=== PATIENT | female | born 1960 | race African-American/Black ===

== ENCOUNTER 2016-05-24 08:50 | Emergency (ER) | payer MEDICAID ==
--- NOTE | 2016-05-24 09:10 | ER Document Report ---
ED GI/ - General Chief Complaint: Flank Pain Stated Complaint: BACK PAIN Notes: Patient is complaining of flank pain over the past 2.5 weeks. She was recently treated for UTI by Dr. Mcginnis. Patient states that her urinary symptoms resolved since. She followed up with him since that diagnosis with this flank pain and she says he wasnt evaluated for anything but he asked if she had a history of renal stones which she does not. Patient states that she has a history of chronic back pain due to scoliosis she states that this pain is different than her baseline back pain. She states that the pain starts in her left flank and radiates to the front groin. Denies nausea, vomiting, fever, pyuria hematuria, difficulty urinating, vaginal symptoms. Last bowel movement was this morning was formed and soft Past medical history significant for chronic back pain secondary to scoliosis, diabetes, depression Past surgical history significant for bladder tacking, tonsils and adenoids, tubal ligation, cholecystectomy, multiple orthopedic procedures on shoulder color Social history: Admits to former narcotic use but denies any tobacco or alcohol TRAVEL OUTSIDE OF THE [place] IN LAST 30 DAYS: No - Related Data Allergies/Adverse Reactions: bupropion HCl [From Wellbutrin] Allergy (Severe, Verified 05/24/16 08:59) prochlorperazine edisylate [From Compazine] Allergy (Severe, Verified 05/24/16 08:59) prochlorperazine maleate [From Compazine] Allergy (Severe, Verified 05/24/16 08: 59) buprenorphine [Buprenorphine] Allergy (Verified 05/24/16 08:59) Phenothiazines Allergy (Verified 05/24/16 08:59) Home Medications: Current Home Medications Canagliflozin [Invokana] 100 mg PO QAM 05/24/16 [History] Polyethylene Glycol 3350 [Polyethylene Glycol] 1 cap PO DAILY 05/24/16 [History] Past Medical History - General Information source: Patient - Social History Smoking Status: Never Smoker Frequency of alcohol use: None Drug Abuse: None Family History: Reviewed & Not Pertinent Patient has suicidal ideation: No Patient has homicidal ideation: No - Past Medical History Cardiac Medical History: Reports: Hx Coronary Artery Disease, Hx Hypertension Denies: Hx Heart Attack Pulmonary Medical History: Denies: Hx Asthma, Hx Bronchitis, Hx COPD, Hx Pneumonia Neurological Medical History: Denies: Hx Cerebrovascular Accident, Hx Seizures Renal/ Medical History: Denies: Hx Peritoneal Dialysis Musculoskeltal Medical History: Reports Hx Arthritis Psychiatric Medical History: Reports: Hx Depression Past Surgical History: Denies: Hx Hysterectomy - Immunizations Hx Diphtheria, Pertussis, Tetanus Vaccination: Yes Review of Systems - Review of Systems Constitutional: No symptoms reported EENT: No symptoms reported Cardiovascular: No symptoms reported Respiratory: No symptoms reported Gastrointestinal: No symptoms reported Genitourinary: No symptoms reported Female Genitourinary: No symptoms reported Musculoskeletal: See HPI Skin: No symptoms reported Hematologic/Lymphatic: No symptoms reported Neurological/Psychological: No symptoms reported Physical Exam - Vital signs Vitals: Temp Pulse Resp BP Pulse Ox 97.9 F 99 20 162/87 H 95 05/24/16 08:52 05/24/16 08:52 05/24/16 08:52 05/24/16 08:52 05/24/16 08:52 - Notes Notes: PHYSICAL EXAM GENERAL: Alert, interacts well. HEAD: Normocephalic, atraumatic. EYES: Pupils equal, round, and reactive to light. Extraocular movements intact. ENT: Oral mucosa moist, tongue midline. NECK: Full range of motion. Supple. Trachea midline. LUNGS: Clear to auscultation bilaterally, no wheezes, rales, or rhonchi. No respiratory distress. HEART: Regular rate and rhythm. No murmurs, gallops, or rubs. ABDOMEN: Soft, nondistended, nontender. No guarding, rebound, or rigidity.. Bowel sounds present in all 4 quadrants. BACK: tense left trapezius. + CVA tenderness of left flank, - CVA tenderness right EXTREMITIES: Moves all 4 extremities spontaneously. No edema, radial and dorsalis pedis pulses 2/4 bilaterally. No cyanosis. NEUROLOGICAL: Alert and oriented x3. Normal speech. PSYCH: Normal affect, normal mood. SKIN: Warm, dry, normal turgor. No rashes or lesions noted. Course - Re-evaluation Re-evalutation: 05/24/16 11:49 Patient is a 55-year-old female who is hemodynamically stable, no acute distress afebrile has a history of chronic back pain. She states has become worse over the past 2 and half weeks. Evaluation today does not feel any renal or urinary causes. KUB reveals 100 which is consistent with constipation for chronic narcotic use. Considering patient doesn't take a stool softener home educated on the benefit of taking this. Instructed to follow-up with Dr. Mcginnis in 1-2 weeks. - Vital Signs Vital signs: Temp Pulse Resp BP Pulse Ox 97.4 F 92 16 129/90 H 98 05/24/16 11:33 05/24/16 11:33 05/24/16 11:33 05/24/16 11:33 05/24/16 11:33 - Laboratory Result Diagrams: 05/24/16 09:56 05/24/16 09:56 Laboratory results interpreted by me: 05/24/16 05/24/16 05/24/16 09:50 09:56 09:56 Hgb 11.2 L Hct 35.4 L MCH 25.6 L MCHC 31.6 L RDW 17.3 H Glucose 170 H Alkaline Phosphatase 150 H Urine Glucose (UA) 50 H Discharge - Discharge Clinical Impression: Flank pain Condition: Good Disposition: HOME, SELF-CARE Additional Instructions: LOW BACK PAIN: Three out of every four people will have an episode of disabling back pain during their lifetime. Most commonly the pain is due to straining of the muscles and ligaments in the low back. Usual treatment includes: (1) Rest on a firm surface. Avoid lying on your stomach. (2) Ice pack the painful area. After a few days, gentle heat may be used intermittently to relax the area, or ice packs can be continued. (3) Medication may be needed -- muscle relaxers and antiinflammatory medicines are commonly used. (4) As the back improves, exercises are prescribed to strengthen the back and abdominal muscles. Your doctor will advise you on the proper care for your back at each stage in your recovery. You may be better in a few days -- or healing may take several weeks. If new symptoms of a "herniated disc" (radiation of pain, numbness, or tingling down the back of the leg or weakness in the leg) occur, you should be re-examined. Further testing may be necessary. MUSCLE RELAXERS: Muscle relaxing medications are usually prescribed for acute muscle spasm or injury to the neck and back. They are often combined with antiinflammatory pain medication for increased relief. You may stop the muscle relaxer when the pain and stiffness have improved. Start the medication again if spasms recur. Muscle relaxers may cause drowsiness, especially with the first dose. Do not operate machinery or drive while under the effects of the medication. Most muscle relaxers last up to 24 hours. Do not combine the medication with alcohol. ICE PACKS: Apply ice packs frequently against the painful area. Many different schedules are recommended, such as "20 minutes on, 20 minutes off" or "one hour ice, two hours rest." If you need to work, you may need to go longer between ice treatments. You should plan to have the area ice packed AT LEAST one fourth of the time. The ice should be applied over the wrap, tape, or splint, or over a layer of cloth -- not directly against the skin. Some ice bags have a built-in cloth and can be put directly on the skin. WARM PACKS: After approximately two days, apply gentle heat (such as a heating pad or hot water bottle) for about 20 to 30 minutes about every two hours -- at least four times daily. Warmth and elevation will help you make a more rapid recovery , and will ease the pain considerably. Do not use HOT heat, and never apply heat for longer than 30 minutes. The continuous heat can invisibly damage skin and muscles -- even when no burn is seen on the surface. Damaged muscles can make you MORE sore. FOLLOW-UP CARE: If you have been referred to a physician for follow-up care, call the physician s office for an appointment as you were instructed or within the next two days. If you experience worsening or a significant change in your symptoms, notify the physician immediately or return to the Emergency Department at any time for re-evaluation. Prescriptions: Cyclobenzaprine HCl [Flexeril 5 mg Tablet] 5 mg PO TID #15 tablet Forms: Elevated Blood Pressure Referrals: WALT MCGINNIS DO [Primary Care Provider] - Follow up in 1 month
[2016-05-24 10:13] LABS: ABSOLUTE BASOPHILS # (AUTO) 0.1 10^3/uL (0.0-0.2); ABSOLUTE EOSINOPHILS # (AUTO) 0.4 10^3/uL (0.0-0.6); ABSOLUTE LYMPHOCYTES (AUTO) 2.2 10^3/uL (0.5-4.7); ABSOLUTE MONOCYTES (AUTO) 0.7 10^3/uL (0.1-1.4); ABSOLUTE NEUT (AUTO) 3.5 10^3/uL (1.7-8.2); BASOPHILS % (AUTO) 0.9 % (0-2); EOSINOPHILS % (AUTO) 5.2 % (0-6); HEMATOCRIT 35.4 % (36.0-47.0); HEMOGLOBIN 11.2 g/dL (12.0-15.5); HGB HCT DIFFERENCE -1.8; LYMPHOCYTES % (AUTO) 32.3 % (13-45); MEAN CORPUSCULAR HEMOGLOBIN 25.6 pg (27.0-33.4); MEAN CORPUSCULAR HGB CONC 31.6 g/dL (32.0-36.0); MEAN CORPUSCULAR VOLUME 81 fl (80-97); MONOCYTES % (AUTO) 10.7 % (3-13); RED BLOOD COUNT 4.37 10^6/uL (3.72-5.28); RED CELL DISTRIBUTION WIDTH 17.3 % (11.5-14.0); SEGMENTED NEUTROPHILS % (AUTO) 50.9 % (42-78)
[2016-05-24 10:27] LABS: ALANINE AMINOTRANSFERASE 42 U/L (9-52); ALBUMIN 4.2 g/dL (3.5-5.0); ALKALINE PHOSPHATASE 150 U/L (38-126); ANION GAP 12 (5-19); ASPARTATE AMINO TRANSFERASE 35 U/L (14-36); BILIRUBIN,TOTAL 0.5 mg/dL (0.2-1.3); BLOOD UREA NITROGEN 10 mg/dL (7-20); CALCIUM 9.1 mg/dL (8.4-10.2); CARBON DIOXIDE 26 mmol/L (22-30); CHLORIDE 104 mmol/L (98-107); CREATININE RESULT 0.83 mg/dL (0.52-1.25); GLUCOSE 170 mg/dL (75-110); POTASSIUM 4.1 mmol/L (3.6-5.0); SODIUM 141.5 mmol/L (137-145); TOTAL PROTEIN 6.6 g/dL (6.3-8.2)
[2016-05-24 10:28] LABS: APPEARANCE,URINE CLEAR; BILIRUBIN,URINE NEGATIVE (NEGATIVE); GLUCOSE, URINE 50 mg/dL (NEGATIVE); KETONES,URINE NEGATIVE (NEGATIVE); LEUKOCYTE ESTERASE,URINE NEGATIVE (NEGATIVE); NITRITE,URINE NEGATIVE (NEGATIVE); PROTEIN,URINE NEGATIVE (NEGATIVE); URINE SPECIFIC GRAVITY 1.009; UROBILINOGEN,URINE NEGATIVE mg/dL (<2.0)
[2016-05-24] MEDS ORDERED: ACETAMINOPHEN 325 MG TABLET PO ONE (11:15)
[2016-05-24] MEDS ORDERED: NORMAL SALINE 500 ML IV PRN (11:15)
[2016-05-24] MEDS ORDERED: OXYCODONE-ACETAMINOPHEN 5-325 MG TABLET PO ONE (11:28)
[2016-05-24 11:34] VITALS: BP 129/90
== END 2016-05-24 11:50 | disposition home or self-care (01) ==
LOC: ER 08:50
DX: R10.9 Unspecified abdominal pain (principal); M54.9 Dorsalgia, unspecified; Z79.899 Other long term (current) drug therapy
CPT/HCPCS: 36415; 74000; 80053; 81001; 85025; 99284

== ENCOUNTER 2016-07-23 10:55 | Observation (INO) | payer MEDICAID ==
[2016-07-23] MEDS ORDERED: ASPIRIN 81 MG TABLET, CHEWABLE PO ONE ×2 (11:33→16:00)
--- NOTE | 2016-07-23 11:33 | ER Document Report ---
ED Medical Screen (RME) - General Stated Complaint: CHEST PAIN,NECK PAIN Notes: Patient states sudden onset of chest pain this morning around 9 AM. States pain radiates to right shoulder and up her right neck. Denies nausea or vomiting. Patient does have diabetes and uses insulin and oral medications, hypertension, and high cholesterol for which she is taking medications. She denies previous heart problems in the past. Describes the pain as pressure. I have greeted and performed a rapid initial assessment of this patient. A comprehensive ED assessment and evaluation of the patient, analysis of test results and completion of the medical decision making process will be conducted by additional ED providers. TRAVEL OUTSIDE OF THE [place] IN LAST 30 DAYS: No - Related Data Allergies/Adverse Reactions: bupropion HCl [From Wellbutrin] Allergy (Severe, Verified 05/24/16 08:59) prochlorperazine edisylate [From Compazine] Allergy (Severe, Verified 05/24/16 08:59) prochlorperazine maleate [From Compazine] Allergy (Severe, Verified 05/24/16 08: 59) buprenorphine [Buprenorphine] Allergy (Verified 05/24/16 08:59) Phenothiazines Allergy (Verified 05/24/16 08:59) Past Medical History - Past Medical History Cardiac Medical History: Reports: Hx Coronary Artery Disease, Hx Hypertension Denies: Hx Heart Attack Pulmonary Medical History: Denies: Hx Asthma, Hx Bronchitis, Hx COPD, Hx Pneumonia Neurological Medical History: Denies: Hx Cerebrovascular Accident, Hx Seizures Endocrine Medical History: Reports: Hx Diabetes Mellitus Type 2 Renal/ Medical History: Denies: Hx Peritoneal Dialysis Musculoskeltal Medical History: Reports Hx Arthritis Psychiatric Medical History: Reports: Hx Depression Past Surgical History: Reports: Hx Cholecystectomy, Hx Orthopedic Surgery - shoulder,knee,wrist, Hx Tonsillectomy, Hx Tubal Ligation. Denies: Hx Hysterectomy - Immunizations Hx Diphtheria, Pertussis, Tetanus Vaccination: Yes Physical Exam - Vital signs Vitals: Temp Pulse Resp BP Pulse Ox 97.9 F 93 22 H 146/89 H 96 07/23/16 11:28 07/23/16 11:28 07/23/16 11:28 07/23/16 11:28 07/23/16 11:28 - Cardiovascular Rhythm: Regular Heart sounds: Normal auscultation Course - Vital Signs Vital signs: Temp Pulse Resp BP Pulse Ox 97.9 F 93 22 H 146/89 H 96 07/23/16 11:28 07/23/16 11:28 07/23/16 11:28 07/23/16 11:28 07/23/16 11:28
[2016-07-23 12:33] LABS: ABSOLUTE BASOPHILS # (AUTO) 0.1 10^3/uL (0.0-0.2); ABSOLUTE EOSINOPHILS # (AUTO) 0.5 10^3/uL (0.0-0.6); ABSOLUTE MONOCYTES (AUTO) 0.6 10^3/uL (0.1-1.4); BASOPHILS % (AUTO) 0.8 % (0-2); EOSINOPHILS % (AUTO) 6.4 % (0-6); HEMATOCRIT 36.7 % (36.0-47.0); HEMOGLOBIN 12.2 g/dL (12.0-15.5); HGB HCT DIFFERENCE -0.1; LYMPHOCYTES % (AUTO) 28.4 % (13-45); MEAN CORPUSCULAR HEMOGLOBIN 27.4 pg (27.0-33.4); MEAN CORPUSCULAR HGB CONC 33.3 g/dL (32.0-36.0); MEAN CORPUSCULAR VOLUME 82 fl (80-97); MONOCYTES % (AUTO) 8.3 % (3-13); RED BLOOD COUNT 4.46 10^6/uL (3.72-5.28); SEGMENTED NEUTROPHILS % (AUTO) 56.1 % (42-78); WHITE BLOOD COUNT 7.2 10^3/uL (4.0-10.5)
[2016-07-23 12:43] LABS: PROTHROMBIN TIME 12.6 SEC (11.4-15.4)
[2016-07-23 12:50] LABS: ALANINE AMINOTRANSFERASE 39 U/L (9-52); ALBUMIN 4.1 g/dL (3.5-5.0); ALKALINE PHOSPHATASE 163 U/L (38-126); ANION GAP 10 (5-19); ASPARTATE AMINO TRANSFERASE 25 U/L (14-36); BILIRUBIN,DIRECT 0.2 mg/dL (0.0-0.4); BILIRUBIN,TOTAL 0.5 mg/dL (0.2-1.3); BLOOD UREA NITROGEN 14 mg/dL (7-20); CALCIUM 9.8 mg/dL (8.4-10.2); CARBON DIOXIDE 27 mmol/L (22-30); CHLORIDE 104 mmol/L (98-107); CREATINE KINASE 259 U/L (30-135); GLUCOSE 235 mg/dL (75-110); POTASSIUM 4.1 mmol/L (3.6-5.0); TOTAL PROTEIN 6.8 g/dL (6.3-8.2)
[2016-07-23 13:02] LABS: CREATINE KINASE MB 0.84 ng/mL (<4.55)
[2016-07-23 13:05] LABS: TROPONIN I < 0.012 ng/mL
[2016-07-23] MEDS ORDERED: NITROGLYCERIN 0.4 MG/TAB 25 TAB/BOTTLE SL PRN (15:01)
--- NOTE | 2016-07-23 15:03 | ER Document Report ---
ED General - General Chief Complaint: Chest Pain Stated Complaint: CHEST PAIN,NECK PAIN Mode of Arrival: Ambulatory Information source: Patient Notes: 55 yr old female with hx of htn, hyperlilpidemia, diabetes stress test 15 yrs ago presents with complaints of sudden chest pressure with radiation to the neck and down the right arm. denies any sob or diaphoresis TRAVEL OUTSIDE OF THE [place] IN LAST 30 DAYS: No - HPI Onset: Just prior to arrival Onset/Duration: Sudden Quality of pain: Pressure Severity: Mild Pain Level: 1 Associated symptoms: Chest pain Exacerbated by: Denies Relieved by: Denies Similar symptoms previously: No Recently seen / treated by doctor: No - Related Data Allergies/Adverse Reactions: bupropion HCl [From Wellbutrin] Allergy (Severe, Verified 07/23/16 11:32) prochlorperazine edisylate [From Compazine] Allergy (Severe, Verified 07/23/16 11:32) prochlorperazine maleate [From Compazine] Allergy (Severe, Verified 07/23/16 11: 32) buprenorphine [Buprenorphine] Allergy (Verified 07/23/16 11:32) Phenothiazines Allergy (Verified 07/23/16 11:32) Past Medical History - Social History Smoking Status: Never Smoker Cigarette use (# per day): No Chew tobacco use (# tins/day): No Smoking Education Provided: No Frequency of alcohol use: None Drug Abuse: None Family History: Reviewed & Not Pertinent - Past Medical History Cardiac Medical History: Reports: Hx Coronary Artery Disease, Hx Hypertension Denies: Hx Heart Attack Pulmonary Medical History: Denies: Hx Asthma, Hx Bronchitis, Hx COPD, Hx Pneumonia Neurological Medical History: Denies: Hx Cerebrovascular Accident, Hx Seizures Endocrine Medical History: Reports: Hx Diabetes Mellitus Type 2 Renal/ Medical History: Denies: Hx Peritoneal Dialysis Musculoskeltal Medical History: Reports Hx Arthritis Psychiatric Medical History: Reports: Hx Depression Past Surgical History: Reports: Hx Cholecystectomy, Hx Orthopedic Surgery - shoulder,knee,wrist, Hx Tonsillectomy, Hx Tubal Ligation. Denies: Hx Hysterectomy - Immunizations Hx Diphtheria, Pertussis, Tetanus Vaccination: Yes Review of Systems - Review of Systems Notes: REVIEW OF SYSTEMS: CONSTITUTIONAL : Denies fever, chills, or sweats. Denies recent illness. EENT: Denies eye, ear, throat, or mouth pain or symptoms. Denies nasal or sinus congestion or discharge. Denies throat, tongue, or mouth swelling or difficulty swallowing. CARDIOVASCULAR: Admits to chest pain RESPIRATORY: Denies cough, cold, or chest congestion. Denies shortness of breath, difficulty breathing, or wheezing. GASTROINTESTINAL: Denies abdominal pain or distention. Denies nausea, vomiting , or diarrhea. Denies blood in vomitus, stools, or per rectum. Denies black, tarry stools. Denies constipation. GENITOURINARY: Denies difficulty urinating, painful urination, burning, frequency, blood in urine, or discharge. FEMALE GENITOURINARY: Denies vaginal bleeding, heavy or abnormal periods, irregular periods. Denies vaginal discharge or odor. MUSCULOSKELETAL: Denies back or neck pain or stiffness. Denies joint pain or swelling. SKIN: Denies rash, lesions or sores. HEMATOLOGIC : Denies easy bruising or bleeding. LYMPHATIC: Denies swollen, enlarged glands. NEUROLOGICAL: Denies confusion or altered mental status. Denies passing out or loss of consciousness. Denies dizziness or lightheadedness. Denies headache. Denies weakness or paralysis or loss of use of either side. Denies problems with gait or speech. Denies sensory loss, numbness, or tingling. Denies seizures. PSYCHIATRIC: Denies anxiety or stress. Denies depression, suicidal ideation, or homicidal ideation. ALL OTHER SYSTEMS REVIEWED AND NEGATIVE. Dictation was performed using [employer] voice recognition software PHYSICAL EXAMINATION: GENERAL: Well-appearing, well-nourished and in no acute distress. HEAD: Atraumatic, normocephalic. EYES: Pupils equal round and reactive to light, extraocular movements intact, conjunctiva are normal. ENT: Nares patent, oropharynx clear without exudates. Moist mucous membranes. NECK: Normal range of motion, supple without lymphadenopathy LUNGS: Breath sounds clear to auscultation bilaterally and equal. No wheezes rales or rhonchi. HEART: Regular rate and rhythm without murmurs ABDOMEN: Soft, nontender, nondistended abdomen. No guarding, no rebound. No masses appreciated. Female : deferred Musculoskeletal: Normal range of motion, no pitting or edema. No cyanosis. NEUROLOGICAL: Cranial nerves grossly intact. Normal speech, normal gait. Normal sensory, motor exams PSYCH: Normal mood, normal affect. SKIN: Warm, Dry, normal turgor, no rashes or lesions noted. Physical Exam - Vital signs Vitals: Temp Pulse Resp BP Pulse Ox 97.9 F 93 22 H 146/89 H 96 07/23/16 11:28 07/23/16 11:28 07/23/16 11:28 07/23/16 11:28 07/23/16 11:28 Course - Re-evaluation Re-evalutation: 07/23/16 15:02 Well-appearing female no acute distress, for severe headache enzymes EKG noted no acute abnormality. Patient will be made for observation overnight for reevaluation of her chest pain - Vital Signs Vital signs: Temp Pulse Resp BP Pulse Ox 97.9 F 93 22 H 146/89 H 96 07/23/16 11:28 07/23/16 11:28 07/23/16 11:28 07/23/16 11:28 07/23/16 11:28 - Laboratory Result Diagrams: 07/23/16 11:50 07/23/16 11:50 Laboratory results interpreted by me: 07/23/16 07/23/16 11:50 11:50 RDW 16.0 H Eosinophils % 6.4 H Glucose 235 H Alkaline Phosphatase 163 H Creatine Kinase 259 H - Diagnostic Test Radiology reviewed: Image reviewed, Reports reviewed Discharge - Discharge Clinical Impression: Chest pain Qualifiers: Chest pain type: unspecified Qualified Code(s): R07.9 - Chest pain, unspecified Condition: Stable Disposition: ADMITTED OBSERVATION Admitting Provider: Hospitalist Unit Admitted: Telemetry
[2016-07-23] MEDS ORDERED: ACETAMINOPHEN 325 MG TABLET PO PRN (16:22)
[2016-07-23] MEDS ORDERED: ONDANSETRON HCL INJ/PF 4 MG/2 ML SDV IV PRN (16:22)
[2016-07-23] MEDS ORDERED: MAGNESIUM HYDROXIDE SUSP 30 ML UDCUP PO PRN (16:22)
[2016-07-23] MEDS ORDERED: OXYCODONE-ACETAMINOPHEN 5-325 MG TABLET PO PRN (16:22)
[2016-07-23] MEDS ORDERED: DEXTROSE 40% GEL 15 GM TUBE PO PRN ×2 (16:29)
[2016-07-23] MEDS ORDERED: INSULIN LISPRO 100 UNIT/ML 3 ML VIAL SUBCUT PRN (16:29)
[2016-07-23] MEDS ORDERED: DEXTROSE 50%-WATER 25 GM/50 ML DISP.SYRIN IV PRN ×2 (16:29)
[2016-07-23] MEDS ORDERED: GLUCAGON,HUMAN RECOMB 1 MG INJ IM PRN (16:29)
[2016-07-23] MEDS ORDERED: ENOXAPARIN SODIUM INJ 40 MG/0.4 ML DISP.SYRIN SUBCUT ONE (16:45)
--- NOTE | 2016-07-23 16:48 | PDOC H&P ---
History of Present Illness Admission Date/PCP: WALT HOPE DO Patient complains of: rt sided chest pain History of Present Illness: GASTON HERBERT is a 55 year old female presents from home with sudden onset of Rt sided chest pain described as sharp, shooting pain unrelenting radiating into Rt chest and neck with asctd dizziness but no dyspnea, N/V, jaw pain or diaphoresis; never had anything like this before. was evaluated in 2015 for Rt shoulder pain with cardiac r/o by enzymes and stress test but this time is different due to radiation into her chest and accompanying pressure. Cardiac risk factors include: Diabetes, long-standing hypertension, hyperlipidemia, family history, obesity, age. Evaluation in the emergency department so far unrevealing with negative cardiac enzyme and a normal EKG however based on her risk factors we were asked to admit for cardiac evaluation. Past Medical History Cardiac Medical History: Reports: Coronary Artery Disease, Hyperlipidema, Hypertension Denies: Myocardial Infarction Pulmonary Medical History: Denies: Asthma, Bronchitis, Chronic Obstructive Pulmonary Disease (COPD), Pneumonia Neurological Medical History: Denies: Seizures Endocrine Medical History: Reports: Diabetes Mellitus Type 2 GI Medical History: Reports: None Musculoskeltal Medical History: Reports: Arthritis Psychiatric Medical History: Reports: Depression, General Anxiety Disorder Hematology: Denies: Anemia Past Surgical History Past Surgical History: Reports: Cholecystectomy, Orthopedic Surgery - shoulder, knee,wrist, Tonsillectomy, Tubal Ligation Denies: Hysterectomy Social History Information Source: Patient Smoking Status: Never Smoker Frequency of Alcohol Use: None Hx Recreational Drug Use: No Hx Prescription Drug Abuse: No - Advance Directive Resuscitation Status: Full Code Family History Family History: CAD, DM Parental Family History Reviewed: Yes Children Family History Reviewed: Yes Sibling(s) Family History Reviewed.: Yes Medication/Allergy Home Medications: Atorvastatin Calcium [Lipitor 40 mg Tablet] 40 mg PO QHS 03/17/15 Cetirizine HCl [Zyrtec] 10 mg PO DAILY 03/17/15 Cyclobenzaprine HCl [Flexeril 10 mg Tablet] 10 mg PO BID PRN 03/17/15 Esomeprazole Magnesium [Nexium] 40 mg PO DAILY 03/17/15 Hydroxyzine Pamoate [Vistaril 25 mg Capsule] 100 mg PO QHS 03/17/15 Insulin Glargine,Hum.rec.anlog [Lantus Solostar] 40 unit SQ DAILY 03/17/15 Lisinopril/Hydrochlorothiazide [Lisinopril-Hctz 20-12.5 mg Tab] 1 each PO DAILY 03/17/15 Sertraline HCl [Zoloft] 200 mg PO DAILY 03/17/15 Sitagliptin Phosphate [Januvia] 100 mg PO DAILY 03/17/15 Dicyclomine HCl 20 mg PO DAILY 01/01/16 Gabapentin 600 mg PO TID 01/01/16 Glipizide [Glipizide Xl] 10 mg PO BID 01/01/16 Meloxicam [Mobic] 15 mg PO DAILY 01/01/16 Zolpidem Tartrate [Ambien] 10 mg PO HSP PRN 01/01/16 Oxycodone HCl/Acetaminophen [Percocet 5-325 mg Tablet] 1 - 2 tab PO ASDIR PRN # 15 tablet 04/14/16 Canagliflozin [Invokana] 100 mg PO QAM 05/24/16 Cyclobenzaprine HCl [Flexeril 5 mg Tablet] 5 mg PO TID #15 tablet 05/24/16 Polyethylene Glycol 3350 [Polyethylene Glycol] 1 cap PO DAILY 05/24/16 Allergies/Adverse Reactions: bupropion HCl [From Wellbutrin] Allergy (Severe, Verified 07/23/16 11:32) prochlorperazine edisylate [From Compazine] Allergy (Severe, Verified 07/23/16 11:32) prochlorperazine maleate [From Compazine] Allergy (Severe, Verified 07/23/16 11: 32) buprenorphine [Buprenorphine] Allergy (Verified 07/23/16 11:32) Phenothiazines Allergy (Verified 07/23/16 11:32) Review of Systems Constitutional: ABSENT: chills, fever(s), headache(s), weight gain, weight loss Eyes: ABSENT: visual disturbances Ears: ABSENT: hearing changes Cardiovascular: PRESENT: chest pain. ABSENT: dyspnea on exertion, edema, orthropnea, palpitations Respiratory: ABSENT: cough, dyspnea, hemoptysis Gastrointestinal: ABSENT: abdominal pain, constipation, diarrhea, hematemesis, hematochezia, nausea, vomiting Genitourinary: ABSENT: dysuria, hematuria Musculoskeletal: ABSENT: joint swelling Integumentary: ABSENT: rash, wounds Neurological: ABSENT: abnormal gait, abnormal speech, confusion, dizziness, focal weakness, syncope Psychiatric: ABSENT: anxiety, depression Endocrine: ABSENT: cold intolerance, heat intolerance, polydipsia, polyuria Hematologic/Lymphatic: ABSENT: easy bleeding, easy bruising Physical Exam Vital Signs: Temp Pulse Resp BP Pulse Ox 97.9 F 93 22 H 146/89 H 97 07/23/16 11:28 07/23/16 11:28 07/23/16 11:28 07/23/16 11:28 07/23/16 15:45 Intake & Output 07/22/16 07/23/16 07/24/16 06:59 06:59 06:59 Weight 105.2 kg PHYSICAL EXAM GENERAL: NAD; well developed, well nourished; mod obese; alert and oriented to person, place, time, situation HEENT: normocephalic, atraumatic; EOMI, PERRLA, no conjunctival injection, no scleral icterus; oral mucosa moist; neck supple, no LAD, normal ROM RESPIRATORY: no accessory muscle use, no increased WOB, good air entry bilaterally; no wheezes, rales, rhonchi; no inspiratory crackles CARDIO: no JVD; RRR; soft systolic murmur at apex; no tachycardia; NSR on monitor VASCULAR: no carotid bruit; no abdominal bruit; no pallor; 2+ radial, DP pulse ; normal capillary refill GI: soft; nondistended; normal bowel sounds; no hepato spleno megaly; no rebound, rigidity, guarding; nontendered NEURO: normal patella reflexes; normal motor function; no dysarthria; no nystagmus; tongue protrudes midline; MSK: 5/5 strength; normal ROM hips; ambulatory without assistance; no tenderness; good ROM Rt shoulder and passive/active/resistance testing fails to reproduce her symptoms EXTREMITIES: no calf tender; no palpable cords in calf; no clubbing, cyanosis , pedal edema PSYCH: normal affect, normal mood SKIN: warm; dry; no petechiae; no telengectasias; no jaundice; no rash Results Laboratory Results: 07/23/16 11:50 07/23/16 11:50 07/23/16 07/23/16 11:50 11:50 WBC 7.2 RBC 4.46 Hgb 12.2 Hct 36.7 MCV 82 MCH 27.4 MCHC 33.3 RDW 16.0 H Plt Count 322 Seg Neutrophils % 56.1 Lymphocytes % 28.4 Monocytes % 8.3 Eosinophils % 6.4 H Basophils % 0.8 Absolute Neutrophils 4.0 Absolute Lymphocytes 2.0 Absolute Monocytes 0.6 Absolute Eosinophils 0.5 Absolute Basophils 0.1 Sodium 141.0 Potassium 4.1 Chloride 104 Carbon Dioxide 27 Anion Gap 10 BUN 14 Creatinine 0.80 Est GFR ( Amer) > 60 Est GFR (Non-Af Amer) > 60 Glucose 235 H Calcium 9.8 Total Bilirubin 0.5 AST 25 ALT 39 Alkaline Phosphatase 163 H Total Protein 6.8 Albumin 4.1 07/23/16 07/23/16 11:50 11:50 Creatine Kinase 259 H CK-MB (CK-2) 0.84 Troponin I < 0.012 EKG Comments: NSR with PAC, QTc 477, axis [address] flattening but no changes from 2015 Impressions: Chest X-Ray 07/23/16 11:33 IMPRESSION: NO ACUTE RADIOGRAPHIC FINDING IN THE CHEST. Status: Image reviewed by me - severe scoliosis with resultant mediastinal shift but no widening and no focal disease Assessment & Plan - Diagnosis (1) Chest pain Qualifiers: Chest pain type: unspecified Qualified Code(s): R07.9 - Chest pain, unspecified Is this a current diagnosis for this admission?: YesPlan: atypical without clear etiology; will admit to telemetry for overnight cardiac monitoring and serial cardiac enzymes. ck stat dimer and if elevated ck cta chest for aortic aneurysm, dissection, PE, etc. If she once again rules out then most likely this is MSK in nature and she can be safely d/c'd home. she was quick to point out that she needed her pain meds and needs to find a new pain medicine MD. 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 It is possible this is malignant HTN causing her symptoms due to diastolic HTN as her' s was 118 while at rest prior to my exam. (4) Hyperlipemia Qualifiers: Hyperlipidemia type: unspecified Qualified Code(s): E78.5 - Hyperlipidemia, unspecified Is this a current diagnosis for this admission?: YesPlan: ck lipids in am; resume home statin once clarified - Time Time Spent: 50 to 70 Minutes Medications reviewed and adjusted accordingly: Yes Anticipated discharge: Home Within: within 24 hours
[2016-07-23] MEDS ORDERED: LISINOPRIL 10 MG TABLET PO ONE (17:00)
[2016-07-23] MEDS: MORPHINE SULFATE 10 MG/ML INJ IV PRN ×2 (17:20→21:14)
--- NOTE | 2016-07-23 18:15 | EKG REPORT ---
SEVERITY:- BORDERLINE ECG - SINUS RHYTHM ATRIAL PREMATURE COMPLEX BORDERLINE T ABNORMALITIES, ANTERIOR LEADS : Confirmed by: Vinayak Del Real MD 23-Jul-2016 18:14:43
[2016-07-23] MEDS ORDERED: NITROGLYCERIN/D5W 250 ML IV PRN (18:26)
[2016-07-23] MEDS ORDERED: CLOPIDOGREL BISULFATE 75 MG TABLET PO ONE (18:39)
--- NOTE | 2016-07-23 20:12 | PDOC TRANSFER SUMMARY ---
General Admission Date/PCP: 07/23/16 16:22 WALT HOPEDO Transfer Date: 07/23/16 Accepting Facility: [facility] Accepting Physician: dr henley, accepting MD Resuscitation Status: Full Code - Transfer Diagnosis (1) Non-STEMI (non-ST elevated myocardial infarction) Is this a current diagnosis for this admission?: YesDiagnosis Summary: Her atypical chest pain seems to have morphed into a non-ST elevation MS based on rising troponins. She is placed on a nitroglycerin drip and is getting at least some relief of her chest discomfort. Hemodynamically she remained stable. Medications adjusted to include usual acute coronary syndrome protocol including full dose Lovenox, aspirin, Plavix, beta elaine, high-dose statin. After discussion with the patient and she is agreeable to transfer to a higher level of care with acute provide invasive cardiology. I have spoken with at [facility] in [facility] who has graciously accepted the patient in transfer. (2) Diabetes Is this a current diagnosis for this admission?: YesDiagnosis Summary: Continue sliding scale insulin. (3) HTN (hypertension) Is this a current diagnosis for this admission?: Yes (4) Hyperlipemia Is this a current diagnosis for this admission?: Yes - Transfer Medications Home Medications: Cetirizine HCl [Zyrtec] 10 mg PO DAILY 07/23/16 Clobetasol Propionate [Temovate] 1 applic TOP Q12 07/23/16 Cyclobenzaprine HCl [Flexeril 10 mg Tablet] 10 mg PO Q12HP PRN 07/23/16 Dicyclomine HCl [Bentyl 20 mg Tablet] 20 mg PO DAILY 07/23/16 Fluticasone Propionate [Flonase Nasal Buchanan 50 Mcg/Buchanan 16 gm] 2 sprays NASL DAILY 07/23/16 Gabapentin [Neurontin] 600 mg PO Q6 07/23/16 Glipizide [Glucotrol 10 mg Tablet] 10 mg PO Q12 07/23/16 Insulin Glargine,Hum.rec.anlog [Lantus Solostar] 45 units SQ QHS 07/23/16 Lisinopril/Hydrochlorothiazide [Zestoretic 20-12.5 mg Tablet] 1 tab PO DAILY Meloxicam [Mobic 15 mg Tablet] 15 mg PO DAILY 07/23/16 Oxycodone HCl/Acetaminophen [Percocet 10-325 mg Tablet] 1 tab PO Q6HP PRN Polyethylene Glycol 3350 [Miralax Powder 17 gm/Packet] 17 gm PO DAILY 07/23/16 Quetiapine Fumarate [Seroquel] 100 mg PO DAILY 07/23/16 Sertraline HCl [Zoloft] 200 mg PO DAILY 07/23/16 Sitagliptin Phosphate [Januvia] 100 mg PO DAILY 07/23/16 Triamcinolone Acetonide [Aristocort 0.1% Ointment] 1 applic TOP DAILY 07/23/16 Zolpidem Tartrate [Ambien] 10 mg PO QHS 07/23/16 Transfer Medications: Current Medications Acetaminophen (Tylenol 325 Mg Tablet) 650 mg PO Q4HP PRN PRN Reason: FOR PAIN OR TEMP Stop: 08/22/16 16:21 Aspirin (Ecotrin 325 Mg Ec Tablet) 325 mg PO DAILY BEULAH Stop: 08/23/16 09:59 Atorvastatin Calcium (Lipitor 80 Mg Tablet) 80 mg PO QHS BEULAH Stop: 08/22/16 21:59 Clopidogrel Bisulfate (Plavix 75 Mg Tablet) 75 mg PO DAILY BEULAH Stop: 08/23/16 09:59 Dextrose (Dextrose Inj 50% Syringe (25 Gm/50 Ml)) 12.5 gm IV PRN PRN; Protocol PRN Reason: FOR BG 50-69 IN ALERT PATIENT Stop: 08/22/16 16:28 Dextrose (Dextrose Inj 50% Syringe (25 Gm/50 Ml)) 25 gm IV PRN PRN PRN Reason: Protocol Stop: 08/22/16 16:28 Enoxaparin Sodium (Lovenox Inj 120 Mg/0.8 Ml Disp.Syrin) 105 mg SUBCUT Q12 BEULAH Stop: 08/23/16 09:59 Enoxaparin Sodium (Lovenox Inj 60 Mg/0.6 Ml Disp.Syrin) 60 mg SUBCUT NOW ONE Stop: 07/23/16 20:31 Glucagon (Glucagen Inj 1 Mg Vial) 1 mg IM PRN PRN; Protocol PRN Reason: Evaluate for BG < 70 Stop: 08/22/16 16:28 Glucose (Glutose 40% Gel 15 Gm Tube) 15 gm PO PRN PRN; Protocol PRN Reason: FOR BG 50-69 IN ALERT PATIENT Stop: 08/22/16 16:28 Glucose (Glutose 40% Gel 15 Gm Tube) 30 gm PO PRN PRN; Protocol PRN Reason: FOR BG < 50 IN ALERT PATIENT Stop: 08/22/16 16:28 Nitroglycerin/Dextrose (Ntg Rtu 50 Mg/D5w 250 Ml Iv Premix Bottle) 250 mls @ 0 mls/hr IV CONTINUOUS PRN; Protocol; Titrate PRN Reason: THIS MED IS NOT "PRN" Stop: 08/22/16 18:25 Insulin Human Lispro (Humalog Insulin 100 Unit/1 Ml 3 Ml Vial) 0 - 12 unit SUBCUT ACHSP PRN PRN Reason: Protocol Stop: 08/22/16 16:28 Lisinopril (Prinivil 10 Mg Tablet) 20 mg PO DAILY [facility] Stop: 08/23/16 09:59 Magnesium Hydroxide (Milk Of Magnesia 30 Ml Udcup) 30 ml PO DAILYP PRN PRN Reason: FOR CONSTIPATION Stop: 08/22/16 16:21 Metoprolol Tartrate (Lopressor 25 Mg Tablet) 12.5 mg PO Q12 [facility] Stop: 08/22/16 21:59 Morphine Sulfate (Morphine 10 Mg/Ml Inj) 2 mg IV Q4HP PRN PRN Reason: FOR PAIN SCALE 4-5 Stop: 07/30/16 16:28 Last Admin: 07/23/16 17:20 Dose: 2 mg Nitroglycerin (Nitrostat 0.4 Mg (1/150 Gr) Tabs 25/Bottle) 1 tab SL ASDIR PRN Stop: 07/24/16 15:02 Ondansetron HCl (Zofran Inj/Pf 4 Mg/2 Ml Sdv) 4 mg IV Q4HP PRN PRN Reason: FOR NAUSEA/VOMITING Stop: 08/22/16 16:21 Oxycodone/Acetaminophen (Percocet 5-325 Mg Tablet) 2 tab PO Q6HP PRN PRN Reason: FOR PAIN SCALE 2-3 Stop: 07/30/16 16:21 Pantoprazole Sodium (Protonix Iv Inj 40 Mg Vial) 40 mg IV Q12 BEULAH Stop: 07/26/16 21:59 Sodium Chloride (Saline Flush 2.5 Ml Monoject Prefil Syrin) 2.5 ml IV Q8 BEULAH Stop: 08/22/16 21:59 Sodium Chloride (Saline Flush 2.5 Ml Monoject Prefil Syrin) 2.5 ml IV Q8 BEULAH Stop: 08/22/16 21:59 - Allergies Allergies/Adverse Reactions: bupropion HCl [From Wellbutrin] Allergy (Severe, Verified 07/23/16 11:32) prochlorperazine edisylate [From Compazine] Allergy (Severe, Verified 07/23/16 11:32) prochlorperazine maleate [From Compazine] Allergy (Severe, Verified 07/23/16 11: 32) buprenorphine [Buprenorphine] Allergy (Verified 07/23/16 11:32) Phenothiazines Allergy (Verified 07/23/16 11:32) - Diet/Activity Discharge Diet: As Tolerated Discharge Activity: Bedrest Hospital Course Hospital Course: GASTON HERBERT is a 55 year old female presents from home with sudden onset of Rt sided chest pain described as sharp, shooting pain unrelenting radiating into Rt chest and neck with asctd dizziness but no dyspnea, N/V, jaw pain or diaphoresis; never had anything like this before. was evaluated in 2015 for Rt shoulder pain with cardiac r/o by enzymes and stress test but this time is different due to radiation into her chest and accompanying pressure. Cardiac risk factors include: Diabetes, long-standing hypertension, hyperlipidemia, family history, obesity, age. Evaluation in the emergency department so far unrevealing with negative cardiac enzyme and a normal EKG however based on her risk factors we were asked to admit for cardiac evaluation. The patient's second set of cardiac enzymes is now elevated her troponin is now 0.204 up from undetectable. She remains in a sinus rhythm with no ST segment changes. However she continues to complain of persistent chest pain as before. It still right-sided, sharp, stabbing radiating into the center of her chest without associated symptoms. On exam there is no change in her physical exam from before, in particular I do not hear a new murmur or carotid bruit and her pulses are symmetric at the radial artery bilateral. A/P: -NSTEMI - her atypical chest pain has not declared itself it would seem. She' ll be placed on a nitroglycerin drip to control her chest pain and to lower her blood pressures, Lovenox will be changed from DVT prophylaxis to full therapeutic dose , she is already received full dose aspirin, will add low-dose beta elaine with careful hemodynamic monitoring, high-dose statin, and Plavix 75 mg. After discussions with the patient, she relates receiving medical and orthopedic care previously at [facility] in [place], [place] and is requesting transfer to that facility for invasive cardiology evaluation and intervention as needed. I've spoken with Dr. Henley who has agreed to accept the patient in transfer. Physical Exam Vital Signs: Temp Pulse Resp BP Pulse Ox 97.9 F 93 25 H 137/94 H 98 07/23/16 11:28 07/23/16 11:28 07/23/16 19:01 07/23/16 19:01 07/23/16 19:01 Results Laboratory Results: 07/23/16 16:57 Troponin I 0.204 Impressions: Chest X-Ray 07/23/16 11:33 IMPRESSION: NO ACUTE RADIOGRAPHIC FINDING IN THE CHEST. Plan Discharge Plan: Transfer to higher level of care Time Spent: Greater than 30 Minutes
[2016-07-23] MEDS ORDERED: ENOXAPARIN SODIUM INJ 120 MG/0.8 ML DISP.SYRIN SUBCUT ONE (20:30)
[2016-07-23] MEDS ORDERED: ENOXAPARIN SODIUM INJ 60 MG/0.6 ML DISP.SYRIN SUBCUT ONE (20:30)
[2016-07-23] MEDS ORDERED: PANTOPRAZOLE SODIUM 40 MG VIAL IV SCH (22:00)
[2016-07-23] MEDS ORDERED: METOPROLOL TARTRATE 25 MG TABLET PO SCH (22:00)
[2016-07-23] MEDS ORDERED: ATORVASTATIN CALCIUM 80 MG TABLET PO SCH (22:00)
[2016-07-24 00:29] VITALS: BP 143/87
[2016-07-24] MEDS ORDERED: ENOXAPARIN SODIUM INJ 40 MG/0.4 ML DISP.SYRIN SUBCUT SCH (08:00)
[2016-07-24] MEDS ORDERED: CLOPIDOGREL BISULFATE 75 MG TABLET PO SCH (10:00)
[2016-07-24] MEDS ORDERED: ENOXAPARIN SODIUM INJ 120 MG/0.8 ML DISP.SYRIN SUBCUT SCH (10:00)
[2016-07-24] MEDS ORDERED: ASPIRIN 325 MG TABLET, ENT COATED PO SCH (10:00)
[2016-07-24] MEDS ORDERED: LISINOPRIL 10 MG TABLET PO SCH (10:00)
--- NOTE | 2016-07-24 10:19 | EKG REPORT ---
SEVERITY:- BORDERLINE ECG - SINUS RHYTHM EARLY TRANSITION, CONSIDER OLD TRUE POST PA : Confirmed by: Vinayak Del Real MD 24-Jul-2016 10:18:52
--- NOTE | 2016-07-26 09:34 | Progress Note ---
Provider Note Provider Note: 07/23/2016: At 9:18 PM, I spoke with Aj at [facility]. I told him the troponin continues to climb. He stated he would notify Dr. Henley of same and that patient would be transferred to their facility. Status of patient discussed more than once with emergency room nurses managing patient. Patient remained stable through the rest of her stay at our facility and was stable for transport to [facility].
== END 2016-07-24 01:19 | disposition short-term general hospital (02) ==
LOC: ER 10:55 → EH 16:22 → UNDOADMOB 18:07 → EH 07-24 00:51
DX: I21.4 Non-ST elevation (NSTEMI) myocardial infarction (principal); I10 Essential (primary) hypertension; E11.9 Type 2 diabetes mellitus without complications; E78.5 Hyperlipidemia, unspecified; Z79.4 Long term (current) use of insulin; Z79.84 Long term (current) use of oral hypoglycemic drugs
CPT/HCPCS: 93005; 36415; 82553; 82550; 85025; 85610; 80053; 84484; 85379; 71010; 93010; G0378 ×2; J2270; J1650 ×2; J3490 ×6; S0164

== ENCOUNTER 2016-11-22 23:31 | Emergency (ER) | payer MEDICAID ==
--- NOTE | 2016-11-23 00:20 | ER Document Report ---
ED Fall - General Chief Complaint: Fall - R leg pain Stated Complaint: FALL/LEG PAIN Time Seen by Provider: 11/23/16 00:19 Notes: The patient is a 56-year-old female who presents with right upper leg pain after a fall earlier today where she felt her legs give out after she tripped over a fall and air conditioning unit. The pain is worsening. She uses a cane at home and is able to ambulate with her cane. Denies numbness, tingling or open wounds. TRAVEL OUTSIDE OF THE [place] IN LAST 30 DAYS: No - Related data Allergies/Adverse Reactions: bupropion HCl [From Wellbutrin] Allergy (Severe, Verified 07/23/16 11:32) prochlorperazine edisylate [From Compazine] Allergy (Severe, Verified 07/23/16 11:32) prochlorperazine maleate [From Compazine] Allergy (Severe, Verified 07/23/16 11: 32) buprenorphine [Buprenorphine] Allergy (Verified 07/23/16 11:32) Phenothiazines Allergy (Verified 07/23/16 11:32) Past Medical History - General Information source: Patient - Social History Smoking Status: Unknown if Ever Smoked Family History: CAD, DM - Past Medical History Cardiac Medical History: Reports: Hx Coronary Artery Disease, Hx Hypercholesterolemia, Hx Hypertension Denies: Hx Heart Attack Pulmonary Medical History: Denies: Hx Asthma, Hx Bronchitis, Hx COPD, Hx Pneumonia Neurological Medical History: Denies: Hx Cerebrovascular Accident, Hx Seizures Endocrine Medical History: Reports: Hx Diabetes Mellitus Type 2 Renal/ Medical History: Denies: Hx Peritoneal Dialysis Musculoskeltal Medical History: Reports Hx Arthritis Psychiatric Medical History: Reports: Hx Depression Past Surgical History: Reports: Hx Cholecystectomy, Hx Orthopedic Surgery - shoulder,knee,wrist, Hx Tonsillectomy, Hx Tubal Ligation. Denies: Hx Hysterectomy - Immunizations Hx Diphtheria, Pertussis, Tetanus Vaccination: Yes Review of Systems - Review of Systems Notes: REVIEW OF SYSTEMS: CONSTITUTIONAL: -fevers, -chills EENT: -eye pain, -difficulty swallowing, -nasal congestion CARDIOVASCULAR:-chest pain, -syncope. RESPIRATORY: -cough, -SOB GASTROINTESTINAL: -abdominal pain, - nausea, -vomiting, -diarrhea GENITOURINARY: -dysuria, -hematuria MUSCULOSKELETAL: +right leg pain, -back pain, -neck pain SKIN: -rash or skin lesions. HEMATOLOGIC: -easy bruising or bleeding. LYMPHATIC: -swollen, enlarged glands. NEUROLOGICAL: -altered mental status or loss of consciousness, -headache, - neurologic symptoms PSYCHIATRIC: -anxiety, -depression. ALL OTHER SYSTEMS REVIEWED AND NEGATIVE. Physical Exam - Vital signs Vitals: Temp Pulse Resp BP Pulse Ox 97.8 F 78 16 131/66 H 98 11/22/16 23:49 11/22/16 23:49 11/22/16 23:49 11/22/16 23:49 11/22/16 23:49 - Notes Notes: PHYSICAL EXAMINATION: GENERAL: Well-appearing, well-nourished and in no acute distress. HEAD: Atraumatic, normocephalic. EYES: Pupils equal round and reactive to light, extraocular movements intact, sclera anicteric, conjunctiva are normal. ENT: nares patent, oropharynx clear without exudates. Moist mucous membranes. NECK: Normal range of motion, supple without lymphadenopathy LUNGS: Breath sounds clear to auscultation bilaterally and equal. No wheezes rales or rhonchi. HEART: Regular rate and rhythm without murmurs ABDOMEN: Soft, nontender, normoactive bowel sounds. No guarding, no rebound. No masses appreciated. EXTREMITIES: Normal range of motion, no pitting or edema. No cyanosis. Strong distal pulses. Mild tenderness over right lateral mid calf. NEUROLOGICAL: Cranial nerves grossly intact. Normal speech, normal gait. Normal sensory and motor exams. PSYCH: Normal mood, normal affect. SKIN: Warm, Dry, normal turgor, no rashes or lesions noted. Course - Re-evaluation Re-evalutation: Patient appears well and no evidence of injury on x-ray. She is ambulating using her cane at baseline. Instructed her about contusion management and f/u at her PMD. - Vital Signs Vital signs: Temp Pulse Resp BP Pulse Ox 97.8 F 84 18 132/76 H 98 11/22/16 23:49 11/23/16 01:20 11/23/16 01:20 11/23/16 01:20 11/23/16 01:20 - Diagnostic Test Radiology reviewed: Image reviewed, Reports reviewed Radiology results interpreted by me: Patient appears well. No evidence of injury on x-ray and patient able to ambulate. Instructed patient to continue anti-inflammatories, ice pack and follow-up with primary care physician and orthopedics as needed. Discharge - Discharge Clinical Impression: Leg pain, right Condition: Stable Disposition: HOME, SELF-CARE Additional Instructions: Contusion Your injury has resulted in a contusion -- a crushing of the deep tissues. No injury to important structures was detected during the physician's exam. Contusions vary in the amount of pain they cause, and in the length of time required for healing. Typically, the area will become bruised, and will remain painful to touch for two or three weeks. However, most patients are back to working and playing within a few days. After the initial period of rest and cold-packs, your symptoms (together with the doctor's recommendations) will determine how rapidly you can get back to full activity. Usually this means "do what feels okay, but don't do things that hurt." If re-examination was recommended, it's important to follow up as instructed. Call the doctor or return any time if pain increases, if swelling becomes severe, if you develop numbness or weakness in an injured extremity, or if any other alarming symptoms occur. Referrals: WALT HOPE DO [Primary Care Provider] - Follow up as needed DENISSE STARR MD [ACTIVE STAFF] - Follow up as needed
[2016-11-23] MEDS ORDERED: NAPROXEN 250 MG TABLET PO ONE (00:27)
[2016-11-23] MEDS ORDERED: ACETAMINOPHEN 325 MG TABLET PO ONE (01:16)
--- NOTE | 2016-11-23 01:18 | RADIOLOGY REPORT (SQ) ---
EXAM DESCRIPTION: FEMUR RIGHT COMPLETED DATE/TIME: 11/23/2016 12:57 am REASON FOR STUDY: right femur pain fall. Pain from the right mid femur to the knee. COMPARISON: Right knee x-ray 09/10/2015. NUMBER OF VIEWS: Two views. TECHNIQUE: Two radiographic images acquired of the right femur to include hip and knee in at least o ne projection. LIMITATIONS: None. FINDINGS: MINERALIZATION: Normal. BONES: No acute fracture or dislocation. Tricompartmental degenerative changes are seen at the right knee with joint space narrowing and osteophytosis. No joint effusion at the knee. SOFT TISSUES: No obvious soft tissue swelling or radiopaque foreign body. IMPRESSION: No radiographic evidence of acute injury. Degenerative changes at the right knee. TECHNICAL DOCUMENTATION: JOB ID: [id number] [email or web address]- All Rights Reserved
[2016-11-23 01:21] VITALS: BP 132/76
== END 2016-11-23 01:21 | disposition home or self-care (01) ==
LOC: ER 23:31
DX: M79.651 Pain in right thigh (principal); W01.0XXA Fall on same level from slipping, tripping and stumbling without subsequent striking against object, initial encounter; I25.10 Atherosclerotic heart disease of native coronary artery without angina pectoris; I10 Essential (primary) hypertension; E11.9 Type 2 diabetes mellitus without complications; Z88.5 Allergy status to narcotic agent; Z88.8 Allergy status to other drugs, medicaments and biological substances
CPT/HCPCS: 99283; 73552; J3490

== ENCOUNTER 2016-12-03 19:56 | Emergency (ER) | payer MEDICAID ==
[2016-12-03 20:50] VITALS: BP 131/81
--- NOTE | 2016-12-03 21:30 | ER Document Report ---
HPI - HPI Patient complains to provider of: fall, ankle and lower back pain Pain Level: 4 Context: Patient is a 56-year-old female who comes emergency department for chief complaint of a fall, she states that she fell several days ago, she states there was a dip in the floor that she did not notice, she twisted her right ankle and landed on her tailbone. She states she has some slight swelling to the outer ankle on the right side and her tailbone area still hurts, prompting her to come be evaluated. She denies any other injuries, denies difficulty urinating or moving her bowels, denies any numbness. Past medical history of diabetes, hypertension, and chronic back pain with pain management. - REPRODUCTIVE Reproductive: DENIES: : - DERM Skin Color: Normal Past Medical History - General Information source: Patient - Social History Smoking Status: Never Smoker Drug Abuse: None Lives with: Family Family History: CAD, DM Patient has suicidal ideation: No Patient has homicidal ideation: No - Past Medical History Cardiac Medical History: Reports: Hx Coronary Artery Disease, Hx Hypercholesterolemia, Hx Hypertension Denies: Hx Heart Attack Pulmonary Medical History: Denies: Hx Asthma, Hx Bronchitis, Hx COPD, Hx Pneumonia Neurological Medical History: Denies: Hx Cerebrovascular Accident, Hx Seizures Endocrine Medical History: Reports: Hx Diabetes Mellitus Type 2 Renal/ Medical History: Denies: Hx Peritoneal Dialysis Musculoskeltal Medical History: Reports Hx Arthritis Psychiatric Medical History: Reports: Hx Depression Past Surgical History: Reports: Hx Cholecystectomy, Hx Orthopedic Surgery - shoulder,knee,wrist, Hx Tonsillectomy, Hx Tubal Ligation. Denies: Hx Hysterectomy - Immunizations Hx Diphtheria, Pertussis, Tetanus Vaccination: Yes Vertical Provider Document - CONSTITUTIONAL General Appearance: WD/WN, No Apparent Distress - INFECTION CONTROL TRAVEL OUTSIDE OF THE [place] IN LAST 30 DAYS: No - HEENT HEENT: Atraumatic, Normocephalic - NECK Neck: Normal Inspection - RESPIRATORY Respiratory: Breath Sounds Normal, No Respiratory Distress O2 Sat by Pulse Oximetry: 96 - CARDIOVASCULAR Cardiovascular: Regular Rate, Regular Rhythm - GI/ABDOMEN Gastrointestinal: Abdomen Soft, Abdomen Non-Tender - BACK Back: negative: Normal Inspection - There is some tenderness in the general lumbar area, no midline tenderness of the lumbar and sacrum, no saddle anesthesia, patient moves upper and lower extremities with full range of motion , normal distal neurovascular exam and strength - MUSCULOSKELETAL/EXTREMETIES Musculoskeletal/Extremeties: Tender - Tender over the right lateral malleolus with what appears to be small amount of soft tissue swelling. Normal ankle, foot, lower extremity exam otherwise. Course - Re-evaluation Re-evalutation: Patient does have a slightly swollen lateral malleolus of the right ankle. No neurological deficits. Unremarkable back exam with very generalized lumbar tenderness and no midline tenderness suggesting fracture. X-ray imaging shows no fractures, shows angulation at the sacrum but there is actually no point tenderness in this area. I do not suspect an acute fracture or neurological deficit based on her exam. Patient was given doses of pain medication here, advised follow-up with her provider for pain management as usual, also given ankle stirrup and Pranay wrap for her ankle. Discussed follow-up and return precautions, patient states understanding and agreement. - Vital Signs Vital signs: Temp Pulse Resp BP Pulse Ox 97.9 F 73 18 131/81 H 96 12/03/16 20:48 12/03/16 20:48 12/03/16 20:48 12/03/16 20:48 12/03/16 20:48 - Diagnostic Test Radiology reviewed: Image reviewed, Reports reviewed Procedures - Immobilization Right ankle Immobilizer type: Pranay wrap, Ankle stirrup Performed by: RN Post-Proc Neuro Vasc Exam: Normal Alignment checked and good: Yes Discharge - Discharge Clinical Impression: Right ankle injury Qualifiers: Encounter type: initial encounter Qualified Code(s): S99.911A - Unspecified injury of right ankle, initial encounter Lower back pain Qualifiers: Chronicity: acute Back pain laterality: bilateral Sciatica presence: without sciatica Qualified Code(s): M54.5 - Low back pain Condition: Stable Disposition: HOME, SELF-CARE Additional Instructions: Your examination does not show any acute fractures or any obvious acute abnormalities. Use the ankle stirrup and wrap, elevate your leg, ice the area 3 -4 times a day. Take the muscle relaxer if needed along with your pain medication. Follow-up with your provider. Return to emergency department for any concerning or worsening symptoms including numbness, loss of bowel or bladder control, or any other concerning symptoms. Prescriptions: Cyclobenzaprine HCl [Flexeril 5 mg Tablet] 1 - 2 tab PO TID PRN #15 tablet PRN Reason: Referrals: WALT HOPE DO [Primary Care Provider] - Follow up as needed
--- NOTE | 2016-12-03 22:03 | RADIOLOGY REPORT (SQ) ---
EXAM DESCRIPTION: ANKLE RIGHT COMPLETE COMPLETED DATE/TIME: 12/03/2016 9:54 pm REASON FOR STUDY: fall, swelling, pain COMPARISON: None. NUMBER OF VIEWS: Three views. TECHNIQUE: AP, lateral, and oblique radiographic images acquired of the right ankle. LIMITATIONS: None. FINDINGS: MINERALIZATION: Normal. BONES: No acute fracture or dislocation. No worrisome bone lesions. JOINTS: No effusions. SOFT TISSUES: No soft tissue swelling. No foreign body. OTHER: No other significant finding. IMPRESSION: NO RADIOGRAPHIC EVIDENCE OF ACUTE INJURY. TECHNICAL DOCUMENTATION: JOB ID: [id number] [employer]- All Rights Reserved
--- NOTE | 2016-12-03 22:05 | RADIOLOGY REPORT (SQ) ---
EXAM DESCRIPTION: L SPINE WHOLE COMPLETED DATE/TIME: 12/03/2016 9:54 pm REASON FOR STUDY: fall, pain COMPARISON: None. NUMBER OF VIEWS: Five views including obliques. TECHNIQUE: AP, lateral, oblique, and sacral radiographic images acquired of the lumbar spine. LIMITATIONS: None. FINDINGS: MINERALIZATION: Normal. SEGMENTATION: Normal. No transitional anatomy. ALIGNMENT: Normal. VERTEBRAE: Maintained height. No fracture or worrisome bone lesion. DISCS: Multilevel disc space narrowing with osteophytes. POSTERIOR ELEMENTS: Pedicles and facets are intact. No pars defect or posterior arch defects. Facet arthropathy is present. HARDWARE: Posterior fusion hardware at the L4 and 5 levels appears intact. PARASPINAL SOFT TISSUES: Normal. PELVIS: Intact as visualized. No fractures or worrisome bone lesions. SI joints intact. OTHER: No other significant finding. IMPRESSION: SPONDYLOSIS WITHOUT BONE LESION OR FRACTURE.Posterior fusion hardware at the L4 and 5 le vels appears intact. TECHNICAL DOCUMENTATION: JOB ID: [id number] [employer]- All Rights Reserved
--- NOTE | 2016-12-03 22:08 | RADIOLOGY REPORT (SQ) ---
EXAM DESCRIPTION: SACRUM AND COCCYX COMPLETED DATE/TIME: 12/03/2016 9:54 pm REASON FOR STUDY: fall, pain COMPARISON: None. NUMBER OF VIEWS: Three views. TECHNIQUE: AP, lateral, and tilt views of the sacrum and coccyx. LIMITATIONS: None. FINDINGS: MINERALIZATION: Normal. BONES: 90 anterior angulation in the lower sacrum, exclude possible fracture in this location clinic ally. No other areas suspicious for fracture or dislocation. No worrisome bone lesions. SOFT TISSUES: No soft tissue swelling. No foreign body. OTHER: No other significant finding. IMPRESSION: 90 anterior angulation in the lower sacrum, exclude possible fracture in this location clinically. No other areas suspicious for fracture or dislocation. TECHNICAL DOCUMENTATION: JOB ID: [id number] [employer] All Rights Reserved
[2016-12-03] MEDS ORDERED: HYDROCODONE/ACETAMINOPHEN 5-325 MG 6 TAB/DSPK PO PRN (22:18)
[2016-12-03] MEDS ORDERED: OXYCODONE-ACETAMINOPHEN 5-325 MG TABLET PO ONE (22:18)
== END 2016-12-03 22:47 | disposition home or self-care (01) ==
LOC: ER 19:56
DX: S99.911A Unspecified injury of right ankle, initial encounter (principal); M53.3 Sacrococcygeal disorders, not elsewhere classified; W19.XXXA Unspecified fall, initial encounter; M54.5 Low back pain; E11.9 Type 2 diabetes mellitus without complications; I10 Essential (primary) hypertension; I25.10 Atherosclerotic heart disease of native coronary artery without angina pectoris
CPT/HCPCS: 99283; 73610; 72220; 72110; L4350

== ENCOUNTER 2016-12-18 11:24 | Emergency (ER) | payer MEDICAID ==
[2016-12-18 11:29] VITALS: BP 134/97
[2016-12-18] MEDS ORDERED: LIDOCAINE 5% (700 MG) TRANSDERMAL ADH..PATCH TP ONE (11:53)
--- NOTE | 2016-12-18 11:59 | ER Document Report ---
ED Extremity Problem, Lower - General Chief Complaint: Leg Pain Stated Complaint: RIGHT LEG PAIN/REVISIT Time Seen by Provider: 12/18/16 11:43 Mode of Arrival: Ambulatory Information source: Patient Notes: 56-year-old female presents to ED for complaint of leg pain. States that she felt 2 weeks ago and came to the ER told she had a sprained ankle had a splint on followed up with her primary doctor. States that she took the splint off yesterday and now her knee and ankle is having a little more pain than it was. She states she also has "knots "in her thigh that she is told her doctor about multiple times. She is speaking in clear complete sentences and has a steady gait. Enlarged lymph nodes in her thigh TRAVEL OUTSIDE OF THE [place] IN LAST 30 DAYS: No - HPI Patient complains to provider of: Pain Location: Thigh - Once a months and months as you did right ankle lumps in the thigh there is nothing was Occurred: Other - Several months ago the pain and "knots" in her thigh started. Couple weeks ago she had a sprained ankle and wore a splint. Onset/Duration: Intermittent Quality of pain: Sharp Severity: Moderate Pain Level: 4 Context: Other - Chronic problems Recent injury: No Exacerbated by: Movement, Walking Relieved by: Nothing - Related Data Allergies/Adverse Reactions: bupropion HCl [From Wellbutrin] Allergy (Severe, Verified 12/03/16 20:50) prochlorperazine edisylate [From Compazine] Allergy (Severe, Verified 12/03/16 20:50) prochlorperazine maleate [From Compazine] Allergy (Severe, Verified 12/03/16 20: 50) buprenorphine [Buprenorphine] Allergy (Verified 12/03/16 20:50) Phenothiazines Allergy (Verified 12/03/16 20:50) Past Medical History - General Information source: Patient - Social History Smoking Status: Never Smoker Cigarette use (# per day): No Chew tobacco use (# tins/day): No Smoking Education Provided: No Frequency of alcohol use: None Drug Abuse: None Occupation: none Lives with: Alone Family History: Arthritis, CAD, CVA, DM, Hyperlipidemia, Hypertension, Malignancy Patient has suicidal ideation: No Patient has homicidal ideation: No - Past Medical History Cardiac Medical History: Reports: Hx Coronary Artery Disease, Hx Hypercholesterolemia, Hx Hypertension Denies: Hx Heart Attack Pulmonary Medical History: Reports: None EENT Medical History: Reports: None Denies: Eyes, Ears, Nose, Throat, Other Neurological Medical History: Reports: None Endocrine Medical History: Reports: Hx Diabetes Mellitus Type 2 Renal/ Medical History: Reports: None Malignancy Medical History: Reports: None GI Medical History: Reports: Hx Irritable Bowel Musculoskeltal Medical History: Reports Hx Arthritis, Reports Hx Musculoskeletal Deformity, Reports Hx Musculoskeletal Trauma Skin Medical History: Reports None Psychiatric Medical History: Reports: Hx Anxiety, Hx Depression Traumatic Medical History: Reports: None Infectious Medical History: Reports: None Past Surgical History: Reports: Hx Cholecystectomy, Hx Genitourinary Surgery - Bladder tack, Hx Neurologic Surgery - Back surgery, Hx Orthopedic Surgery - shoulder,knee,wrist, Hx Tonsillectomy, Hx Tubal Ligation - Immunizations Hx Diphtheria, Pertussis, Tetanus Vaccination: Yes Review of Systems - Review of Systems Constitutional: No symptoms reported EENT: No symptoms reported Cardiovascular: No symptoms reported Respiratory: No symptoms reported Gastrointestinal: No symptoms reported Genitourinary: No symptoms reported Female Genitourinary: No symptoms reported Musculoskeletal: Muscle pain - Right leg ankle since her sprain several weeks ago, thigh she states more than 4 months Skin: No symptoms reported Hematologic/Lymphatic: No symptoms reported Neurological/Psychological: No symptoms reported -: Yes All other systems reviewed and negative Physical Exam - Vital signs Vitals: Temp Pulse Resp BP Pulse Ox 98.6 F 89 16 134/97 H 95 12/18/16 11:25 12/18/16 11:25 12/18/16 11:25 12/18/16 11:25 12/18/16 11:25 Interpretation: Normal - General General appearance: Appears well, Alert - HEENT Head: Normocephalic, Atraumatic Eyes: Normal Pupils: PERRL - Respiratory Respiratory status: No respiratory distress Chest status: Nontender Breath sounds: Normal Chest palpation: Normal - Cardiovascular Rhythm: Regular Heart sounds: Normal auscultation Murmur: No - Abdominal Inspection: Normal Distension: No distension Bowel sounds: Normal Tenderness: Nontender Organomegaly: No organomegaly - Back Back: Normal, Nontender - Extremities General upper extremity: Normal inspection, Nontender, Normal color, Normal ROM , Normal temperature General lower extremity: Normal inspection, Normal color, Normal ROM, Normal temperature, Normal weight bearing. No: Jarad's sign Thigh: Tender. No: Abrasion, Deformity, Dislocation, Ecchymosis, Instability, Laceration, Unable to bear weight Knee: Normal, Nontender Calf: Normal, Nontender Ankle: Tender. No: Abrasion, Deformity, Ecchymosis, Edema, Instability, Limited ROM, Positive Jhaveri's test, Unable to bear weight Foot: Normal, Nontender - Neurological Neuro grossly intact: Yes Cognition: Normal Orientation: AAOx4 [place] Coma Scale Eye Opening: Spontaneous [place] Coma Scale Verbal: Oriented [place] Coma Scale Motor: Obeys Commands [place] Coma Scale Total: 15 Speech: Normal Motor strength normal: LUE, RUE, LLE, RLE Sensory: Normal - Psychological Associated symptoms: Normal affect, Normal mood - Skin Skin Temperature: Warm Skin Moisture: Dry Skin Color: Normal Course - Vital Signs Vital signs: Temp Pulse Resp BP Pulse Ox 98.6 F 89 16 134/97 H 95 12/18/16 11:25 12/18/16 11:25 12/18/16 11:25 12/18/16 11:25 12/18/16 11:25 Discharge - Discharge Clinical Impression: Leg pain, right Chronic pain Qualifiers: Chronic pain type: other chronic pain Qualified Code(s): G89.29 - Other chronic pain Condition: Stable Disposition: HOME, SELF-CARE Additional Instructions: Leg Pain, Nonspecific We did not find an obvious cause for your leg pain. There's no sign of blood clot, infection, or other serious disease. Possible causes of vague leg pain include muscle or joint inflammation, disc disease in the lower back, pressure on the nerves in the back, or reduced blood flow through the arteries of the leg. Rest the leg. Pain can be eased with an antiinflammatory pain medicine such as ibuprofen. If the pain involves a small area, a heating pad might help. Call the doctor or return if the leg becomes swollen, weak, discolored, or increasingly painful, or if you develop any other significant change in your health. Leg Cramps There are many causes of leg cramps. Most of the time, there is no underlying serious medical condition. Calf muscle cramps that occur at rest or during the night are a nuisance, but are usually not caused by any serious medical problem. Leg cramps that occur during exercise (walking, stair climbing) can be caused by poor circulation. Cramping is more likely to occur if the legs swell. Over-exercise or overheating can cause muscle spasms even with good circulation. Cramp-like muscle pain can be an early symptom of blood clots in the lower leg. Sometimes cramping is due to a previous muscle injury. Occasionally cramping is a symptom of dehydration or of low levels of sodium, potassium, calcium or magnesium. When a cramp occurs, stretch gently and massage the cramped muscle. Get enough fluids, potassium, and sodium for the muscle to work normally. Avoid strenuous exercise for several days if you've been having frequent leg cramps. Medicines such a quinine may be helpful in some patients with night cramps. Call the doctor or return if you develop redness, swelling, bruising, or increased pain in the leg, or if the foot becomes cold, numb, pale, or discolored. ICE & ELEVATION: Apply ice packs frequently against the painful area. Many different schedules are recommended, such as "20 minutes on, 20 minutes off" or "one hour ice, two hours rest." If you need to work, you may need to go longer between ice treatments. You should plan to have the area ice packed AT LEAST one- fourth of the time. The ice should be applied over the wrap, tape, or splint, or over a layer of cloth -- not directly against the skin. Some ice bags have a built-in cloth and can be put directly on the skin. Your injured part should be elevated as much as possible over the next 48 hours. Try to keep the injury above the level of the heart. Avoid use of the injured area. Elevation and rest will decrease the swelling. Over the cream Aspercreme is cheaper than Lidoderm patches it will decrease pain if rub to the area of discomfort. Please follow-up with your primary doctor concerning your other complaints of pain in your leg. FOLLOW-UP CARE: If you have been referred to a physician for follow-up care, call the physician s office for an appointment as you were instructed or within the next two days. If you experience worsening or a significant change in your symptoms, notify the physician immediately or return to the Emergency Department at any time for re-evaluation. Forms: Elevated Blood Pressure Referrals: WALT HOPE, [Primary Care Provider] - Follow up as needed
== END 2016-12-18 12:12 | disposition home or self-care (01) ==
LOC: ER 11:24
DX: M79.661 Pain in right lower leg (principal); G89.29 Other chronic pain
CPT/HCPCS: 99283; J3490

== ENCOUNTER → 2017-06-30 | Outpatient (CLI) | payer MEDICAID ==
--- NOTE | 2017-06-30 16:48 | WOMENS IMAGING REPORT ---
EXAM DESCRIPTION: BILAT SCREENING MAMMO W/CAD COMPLETED DATE/TIME: 06/30/2017 11:13 am REASON FOR STUDY: SCREENING MAMMO Z12.31 ENCNTR SCREEN MAMMOGRAM FOR MALIGNANT NEOPLASM OF [place]IL[place] COMPARISON: January 2016 and December 2014 TECHNIQUE: Standard craniocaudal and mediolateral oblique views of each breast recorded using [employer] acquisition. LIMITATIONS: None. FINDINGS: RIGHT BREAST MASSES: No suspicious masses. CALCIFICATIONS: No new or suspicious calcifications. ARCHITECTURAL DISTORTION: None. DEVELOPING DENSITY: None. ASYMMETRY: None noted. OTHER: No other significant findings. LEFT BREAST MASSES: No suspicious masses. CALCIFICATIONS: No new or suspicious calcifications. ARCHITECTURAL DISTORTION: None. DEVELOPING DENSITY: None. ASYMMETRY: There is a small focal asymmetric density projected slightly superiorly and anteriorly in the left breast in the MLO projection 6.5 cm from the nipple level for which cone compression views, a true lateral view, and possibly ultrasound are recommended OTHER: No other significant findings. Read with the assistance of CAD. .[facility] - R2 Cenova Version 1.3 .[facility] - R2 Cenova Version 1.3 .[facility] - R2 Cenova Version 2.4 .[facility]2 Cenova Version 2.4 .[facility] - R2 Methods Examiner Version 9.2 IMPRESSION: Small focal asymmetric density in the left breast for which additional imaging is recomm ended. BREAST DENSITY: b. There are scattered areas of fibroglandular density. BIRAD: 0 Incomplete: Needs Additional Imaging Evaluation and/or prior Mammograms for Comparison. RECOMMENDATION: RECOMMENDED FOLLOW-UP: Recommend cone compression views, a true lateral view, and po ssibly ultrasound of the left breast The patient will be contacted for additional imaging. COMMENT: The patient has been notified of the results by letter per SA requirements. Additional no tification policies are in place for contacting patient with suspicious or incomplete findings. Quality ID #[id number]: The [employer] recommends an annual screening mammogram for women aged 40 years or over. This facility utilizes a reminder system to ensure that all patients receive reminder letters, and/or direct phone calls for appointments. This includes reminders for routine scr eening mammograms, diagnostic mammograms, or other Breast Imaging Interventions when appropriate. Th is patient will be placed in the appropriate reminder system. The [employer] (ACR) has developed recommendations for screening MRI of the breast s in certain patient populations, to be used in conjunction with mammography. Breast MRI surveillanc e may be appropriate for women with more than 20% lifetime risk of developing breast cancer as deter mined by genetic testing, significant family history of the disease, or history of mantle radiation f or Hodgkins Disease. ACR Practice Guidelines 2008. TECHNICAL DOCUMENTATION: FINDING NUMBER: (1) ASSESSMENT: (1) JOB ID: [id number] [employer]- All Rights Reserved Reading location - IP/workstation name: [facility]-RR2
== END ==
LOC: WI 10:54
PROVIDERS: ATTEND Family Medicine
DX: Z12.31 Encounter for screening mammogram for malignant neoplasm of breast (principal); R92.2 Inconclusive mammogram
CPT/HCPCS: 77067

== ENCOUNTER → 2017-07-07 | Outpatient (CLI) | payer MEDICAID ==
--- NOTE | 2017-07-07 09:36 | WOMENS IMAGING REPORT ---
EXAM DESCRIPTION: LEFT DIAGNOSTIC MAMMO W/CAD; U/S BREAST UNILATERAL, COMPL COMPLETED DATE/TIME: 07/07/2017 8:19 am; 07/07/2017 9:14 am REASON FOR STUDY: INCONCLUSIVE MAMMO; LEFT BREAST; R92.2 R92.2 INCONCLUSIVE MAMMOGRAM COMPARISON: 06/30/2017 and 01/09/2016. TECHNIQUE: True lateral, MLO, and CC images and spot compression MLO images acquired. LIMITATIONS: None. FINDINGS: BREAST: left MASSES: No suspicious masses. CALCIFICATIONS: No new or suspicious calcifications. ARCHITECTURAL DISTORTION: None. DEVELOPING DENSITY: None. ASYMMETRY: Asymmetric density seen on screening mammography is not present on additional images. Dee ast parenchyma with no underlying mass or architectural distortion. OTHER: No other significant findings. BREAST ULTRASOUND: TECHNIQUE: Static and dynamic grayscale images acquired of the left breast in the specific areas of c linical/mammographic concern. Selected color Doppler images recorded. ELASTOGRAPHY PERFORMED: No. LIMITATIONS: None. FINDINGS: MASS: No mass identified. Normal glandular tissue. ELASTOGRAPHY CHARACTERISTICS: Not applicable. OTHER: No other significant finding. IMPRESSION: Asymmetric density seen on screening mammography not present on additional imaging. Dee ast parenchyma with no underlying lesion. No worrisome mammographic or sonographic findings. BREAST DENSITY: b. There are scattered areas of fibroglandular density. BIRAD: 1 Negative. RECOMMENDATION: RECOMMENDED FOLLOW UP: Birads 1 or 2: The patient should resume routine screening . SPECIFIC INTERVENTION/IMAGING/CONSULTATION RECOMMENDED:No additional intervention/ imaging/consultati on needed at this time. COMMUNICATION:The imaging findings were not discussed with the patient. Her referring provider has be en notified of the findings. COMMENT: The patient has been notified of the results by letter per MQSA requirements. Additional no tification policies are in place for contacting patient with suspicious or incomplete findings. Quality ID #[id number]: The [employer] recommends an annual screening mammogram for women aged 40 years or over. This facility utilizes a reminder system to ensure that all patients receive reminder letters, and/or direct phone calls for appointments. This includes reminders for routine scr eening mammograms, diagnostic mammograms, or other Breast Imaging Interventions when appropriate. Th is patient will be placed in the appropriate reminder system. The [employer] (ACR) has developed recommendations for screening MRI of the breast s in certain patient populations, to be used in conjunction with mammography. Breast MRI surveillanc e may be appropriate for women with more than 20% lifetime risk of developing breast cancer as deter mined by genetic testing, significant family history of the disease, or history of mantle radiation f or Hodgkins Disease. ACR Practice Guidelines 2008. TECHNICAL DOCUMENTATION: FINDING NUMBER: (1) ASSESSMENT: (1) JOB ID: [id number] [employer]- All Rights Reserved Reading location - IP/workstation name: [facility]
== END ==
LOC: WI 07:55
PROVIDERS: ATTEND Family Medicine
DX: R92.2 Inconclusive mammogram (principal)
CPT/HCPCS: 76641

== ENCOUNTER 2017-12-25 17:08 | Emergency (ER) | payer MEDICAID ==
[2017-12-25] MEDS ORDERED: KETOROLAC TROMETHAMINE 60 MG/2 ML SDV IM ONE (17:52)
--- NOTE | 2017-12-25 18:30 | RADIOLOGY REPORT (SQ) ---
EXAM DESCRIPTION: CT ABD/PELVIS NO ORAL OR IV COMPLETED DATE/TIME: 12/25/2017 6:19 pm REASON FOR STUDY: renal stone left sided first time COMPARISON: None. TECHNIQUE: CT scan of the abdomen and pelvis performed without intravenous or oral contrast. Images reviewed with lung, soft tissue, and bone windows. Reconstructed coronal and sagittal MPR images revi ewed. All images stored on PACS. All CT scanners at this facility use dose modulation, iterative reconstruction, and/or weight based d osing when appropriate to reduce radiation dose to as low as reasonably achievable (ALARA). [facility]: Dose Right [facility]: CareDose [facility]: Dose Right [facility]: Teradose 4D [facility]: Smart [employer] RADIATION DOSE: mGy. LIMITATIONS: None. FINDINGS: LOWER CHEST: Patchy airspace opacities in the anterior aspect of the right lower lobe. NON-CONTRASTED LIVER, SPLEEN, ADRENALS: Evaluation limited by lack of IV contrast. No identified sign ificant masses. PANCREAS: No masses. No peripancreatic inflammatory changes. GALLBLADDER: Surgically absent. RIGHT KIDNEY AND URETER: No cysts identified. No solid masses. No calcified stones. No hydronephrosis or hydroureter. LEFT KIDNEY AND URETER: No cysts identified. No solid masses. No calcified stones. No hydronephrosis or hydroureter. AORTA AND RETROPERITONEUM: No aneurysm. No retroperitoneal masses or adenopathy. BOWEL AND PERITONEAL CAVITY: No obvious masses or inflammatory changes. No free fluid. APPENDIX: Normal. PELVIS, BLADDER, AND ABDOMINAL WALL:No abnormal masses. No free fluid. Unremarkable bladder. BONES: No acute findings. OTHER: Posterior fusion hardware at the L4-5 levels. IMPRESSION: Patchy airspace opacities in the anterior aspect of the right lower lobe.NO ACUTE FINDI NGS in the abdomen or pelvis. TECHNICAL DOCUMENTATION: JOB ID: [id number] Quality ID # [id number]: Final reports with documentation of one or more dose reduction techniques (e.g., Au tomated exposure control, adjustment of the mA and/or kV according to patient size, use of iterative reconstruction technique) 2010 [employer]- All Rights Reserved Reading location - IP/workstation name: [email or web address]
[2017-12-25] MEDS ORDERED: NORMAL SALINE 1000 ML 1,000 ML IV ONE (19:14)
[2017-12-25] MEDS ORDERED: ONDANSETRON HCL INJ/PF 4 MG/2 ML SDV IV ONE (19:14)
--- NOTE | 2017-12-25 19:44 | ER Document Report ---
ED GI/ - General Chief Complaint: Abdominal Pain and nausea Stated Complaint: ABDOMINAL PAIN Time Seen by Provider: 12/25/17 17:46 Mode of Arrival: Ambulatory Information source: Patient TRAVEL OUTSIDE OF THE [place] IN LAST 30 DAYS: No - HPI Patient complains to provider of: Abdominal pain Onset: Last week Timing/Duration: Persistent Quality of pain: Achy Severity at maximum: Moderate Severity in ED: Moderate Location: Epigastric Associated symptoms: Nausea Exacerbated by: Denies Relieved by: Denies Similar symptoms previously: No Recently seen / treated by doctor: No Notes: 12/25/17 19:43 Patient is a 57-year-old female presenting to the emergency room complaining of epigastric abdominal pain associated with nausea that has been going on all week , she denies any fevers, no vomiting, no diarrhea, she does have a cough productive of whitish colored phlegm, denies any dysuria or hematuria, no history of similar symptoms previously - Related Data Allergies/Adverse Reactions: bupropion HCl [From Wellbutrin] Allergy (Severe, Verified 12/03/16 20:50) prochlorperazine edisylate [From Compazine] Allergy (Severe, Verified 12/03/16 20:50) prochlorperazine maleate [From Compazine] Allergy (Severe, Verified 12/03/16 20: 50) buprenorphine [Buprenorphine] Allergy (Verified 12/03/16 20:50) Phenothiazines Allergy (Verified 12/03/16 20:50) Past Medical History - General Information source: Patient - Social History Smoking Status: Unknown if Ever Smoked Family History: Arthritis, CAD, CVA, DM, Hyperlipidemia, Hypertension, Malignancy Patient has suicidal ideation: No Patient has homicidal ideation: No - Past Medical History Cardiac Medical History: Reports: Hx Coronary Artery Disease, Hx Hypercholesterolemia, Hx Hypertension Denies: Hx Heart Attack Endocrine Medical History: Reports: Hx Diabetes Mellitus Type 2 Renal/ Medical History: Denies: Hx Peritoneal Dialysis GI Medical History: Reports: Hx Gastroesophageal Reflux Disease, Hx Irritable Bowel Musculoskeletal Medical History: Reports Hx Arthritis, Reports Hx Musculoskeletal Deformity, Reports Hx Musculoskeletal Trauma Psychiatric Medical History: Reports: Hx Anxiety, Hx Depression Past Surgical History: Reports: Hx Cholecystectomy, Hx Genitourinary Surgery - Bladder tack, Hx Neurologic Surgery - Back surgery, Hx Orthopedic Surgery - shoulder,knee,wrist, Hx Tonsillectomy, Hx Tubal Ligation. Denies: Hx Hysterectomy - Immunizations Hx Diphtheria, Pertussis, Tetanus Vaccination: Yes Review of Systems - Review of Systems Constitutional: No symptoms reported EENT: No symptoms reported Cardiovascular: No symptoms reported Respiratory: Cough Gastrointestinal: Abdominal pain, Nausea Genitourinary: No symptoms reported Female Genitourinary: No symptoms reported Musculoskeletal: No symptoms reported Skin: No symptoms reported Hematologic/Lymphatic: No symptoms reported Neurological/Psychological: No symptoms reported -: Yes All other systems reviewed and negative Physical Exam - Vital signs Vitals: Temp Pulse Resp BP Pulse Ox 98.9 F 96 20 136/81 H 97 12/25/17 17:20 12/25/17 17:20 12/25/17 17:20 12/25/17 17:20 12/25/17 17:20 Interpretation: Normal - General General appearance: Appears well, Alert - HEENT Head: Normocephalic, Atraumatic Eyes: Normal Pupils: PERRL - Respiratory Respiratory status: No respiratory distress Chest status: Nontender Breath sounds: Normal Chest palpation: Normal - Cardiovascular Rhythm: Regular Heart sounds: Normal auscultation Murmur: No - Abdominal Inspection: Normal Distension: No distension Bowel sounds: Normal Tenderness: Tender - Epigastric Organomegaly: No organomegaly - Back Back: Normal, Nontender - Extremities General upper extremity: Normal inspection, Nontender, Normal color, Normal ROM , Normal temperature General lower extremity: Normal inspection, Nontender, Normal color, Normal ROM , Normal temperature, Normal weight bearing. No: Jarad's sign - Neurological Neuro grossly intact: Yes Cognition: Normal Orientation: AAOx4 [place] Coma Scale Eye Opening: Spontaneous [place] Coma Scale Verbal: Oriented [place] Coma Scale Motor: Obeys Commands [place] Coma Scale Total: 15 Speech: Normal Motor strength normal: LUE, RUE, LLE, RLE Sensory: Normal - Psychological Associated symptoms: Normal affect, Normal mood - Skin Skin Temperature: Warm Skin Moisture: Dry Skin Color: Normal Course - Re-evaluation Re-evalutation: 12/25/17 21:03 Patient reports feeling much better and requesting something to drink, abdomen is soft and no longer tender, lab and imaging findings were discussed at bedside , patient is noted to have leukocytosis which is consistent with the pneumonia that was noted on the CT scan of the abdomen and pelvis, symptoms otherwise consistent with likely acid reflux, she was advised to watch her diet, follow- up with GI, return if symptoms worsen, patient and daughter at bedside acknowledge understanding and agreement with this plan - Vital Signs Vital signs: Temp Pulse Resp BP Pulse Ox 98.9 F 96 20 136/81 H 97 12/25/17 17:20 12/25/17 17:20 12/25/17 17:20 12/25/17 17:20 12/25/17 17:20 - Laboratory Result Diagrams: 12/25/17 19:40 12/25/17 20:21 Laboratory results interpreted by me: 12/25/17 12/25/17 12/25/17 19:00 19:40 20:21 WBC 16.7 H Hct 35.4 L RDW 16.2 H Seg Neutrophils % 81.4 H Lymphocytes % 6.8 L Absolute Neutrophils 13.6 H Absolute Monocytes 1.8 H Sodium 135.1 L Potassium 3.2 L Chloride 95 L Glucose 112 H Direct Bilirubin 0.5 H Urine Protein 100 H Urine Ketones 80 H Urine Blood SMALL H Urine Urobilinogen 4.0 H Ur Leukocyte Esterase TRACE H - Diagnostic Test Radiology reviewed: Image reviewed, Reports reviewed Discharge - Discharge Clinical Impression: Epigastric abdominal pain Pneumonia Qualifiers: Pneumonia type: due to unspecified organism Laterality: right Lung location: lower lobe of lung Qualified Code(s): J18.1 - Lobar pneumonia, unspecified organism Condition: Stable Disposition: HOME, SELF-CARE Instructions: Abdominal Pain ([facility]), Gastroenterology, Pneumonia ([facility]) Additional Instructions: Follow up with your primary care provider and a studio sales associate in one to 2 days. Return to the emergency room immediately if symptoms worsen or any additional concerns. Prescriptions: Doxycycline Hyclate 100 mg PO BID #20 tablet. Referrals: WALT HOPE DO [Primary Care Provider] - Follow up as needed
[2017-12-25 19:52] LABS: APPEARANCE,URINE SLIGHTLY-CLOUDY; BILIRUBIN,URINE NEGATIVE (NEGATIVE); GLUCOSE, URINE NEGATIVE (NEGATIVE); KETONES,URINE 80 mg/dL (NEGATIVE); LEUKOCYTE ESTERASE,URINE TRACE (NEGATIVE); NITRITE,URINE NEGATIVE (NEGATIVE); PROTEIN,URINE 100 mg/dL (NEGATIVE); URINE SPECIFIC GRAVITY 1.026
[2017-12-25 19:55] LABS: COLOR,URINE YELLOW
[2017-12-25 20:03] LABS: ABSOLUTE BASOPHILS # (AUTO) 0.1 10^3/uL (0.0-0.2); ABSOLUTE LYMPHOCYTES (AUTO) 1.1 10^3/uL (0.5-4.7); ABSOLUTE MONOCYTES (AUTO) 1.8 10^3/uL (0.1-1.4); ABSOLUTE NEUT (AUTO) 13.6 10^3/uL (1.7-8.2); BASOPHILS % (AUTO) 0.8 % (0-2); EOSINOPHILS % (AUTO) 0.2 % (0-6); HEMATOCRIT 35.4 % (36.0-47.0); LYMPHOCYTES % (AUTO) 6.8 % (13-45); MEAN CORPUSCULAR HEMOGLOBIN 28.2 pg (27.0-33.4); MEAN CORPUSCULAR VOLUME 83 fl (80-97); MONOCYTES % (AUTO) 10.8 % (3-13); PLATELET COUNT 349 10^3/uL (150-450); RED BLOOD COUNT 4.28 10^6/uL (3.72-5.28); RED CELL DISTRIBUTION WIDTH 16.2 % (11.5-14.0); SEGMENTED NEUTROPHILS % (AUTO) 81.4 % (42-78); TOTAL CELLS COUNTED % (AUTO) 100 %; WHITE BLOOD COUNT 16.7 10^3/uL (4.0-10.5)
[2017-12-25 20:50] LABS: ALANINE AMINOTRANSFERASE 24 U/L (9-52); ALBUMIN 3.6 g/dL (3.5-5.0); ALKALINE PHOSPHATASE 117 U/L (38-126); ANION GAP 13 (5-19); ASPARTATE AMINO TRANSFERASE 33 U/L (14-36); BILIRUBIN,DIRECT 0.5 mg/dL (0.0-0.4); BILIRUBIN,TOTAL 0.7 mg/dL (0.2-1.3); BLOOD UREA NITROGEN 12 mg/dL (7-20); CALCIUM 9.1 mg/dL (8.4-10.2); CARBON DIOXIDE 27 mmol/L (22-30); CHLORIDE 95 mmol/L (98-107); GLUCOSE 112 mg/dL (75-110); LIPASE 36.5 U/L (23-300); POTASSIUM 3.2 mmol/L (3.6-5.0); SODIUM 135.1 mmol/L (137-145); TOTAL PROTEIN 7.1 g/dL (6.3-8.2)
[2017-12-25] MEDS ORDERED: DOXYCYCLINE HYCLATE 100 MG TABLET PO ONE (21:03)
[2017-12-25 21:26] VITALS: BP 130/83
== END 2017-12-25 21:26 | disposition home or self-care (01) ==
LOC: ER 17:08
DX: R10.13 Epigastric pain (principal); J18.1 Lobar pneumonia, unspecified organism; R11.0 Nausea; R05 Cough; I25.10 Atherosclerotic heart disease of native coronary artery without angina pectoris; I10 Essential (primary) hypertension; E11.9 Type 2 diabetes mellitus without complications; Z87.19 Personal history of other diseases of the digestive system; Z90.49 Acquired absence of other specified parts of digestive tract; Z88.8 Allergy status to other drugs, medicaments and biological substances
CPT/HCPCS: 99284; 96372; 96361; 96374; 36415; 83690; 85025; 80053; 81001; 74176; J3490; J1885; J2405; J7030

== ENCOUNTER → 2017-12-27 | Outpatient (CLI) | payer MEDICAID | LOC: OD 15:44 | PROVIDERS: ATTEND Nurse Practitioner Family | DX: N39.0 Urinary tract infection, site not specified (principal) | CPT/HCPCS: 87086 ==

== ENCOUNTER → 2018-06-07 | Outpatient (CLI) | payer MEDICAID ==
--- NOTE | 2018-06-07 21:13 | EKG REPORT ---
SEVERITY:- OTHERWISE NORMAL ECG - SINUS TACHYCARDIA : Confirmed by: Omar Moreno 07-Jun-2018 21:12:40
== END ==
LOC: OD 13:41
PROVIDERS: ATTEND Family Medicine
DX: R00.2 Palpitations (principal)
CPT/HCPCS: 93005; 93010

== ENCOUNTER 2018-09-08 11:23 | Emergency (ER) | payer MEDICAID ==
[2018-09-08] MEDS ORDERED: NORMAL SALINE 1000 ML 1,000 ML IV ONE (12:00)
--- NOTE | 2018-09-08 12:06 | ER Document Report ---
ED Dizziness/Weakness - General Chief Complaint: General Weakness Stated Complaint: WEAKNESS Time Seen by Provider: 09/08/18 11:52 Primary Care Provider: BUZZ SPAIN MD [ASSOCIATE] - Follow up as needed TRAVEL OUTSIDE OF THE [place] IN LAST 30 DAYS: No - HPI Notes: Patient is a 58-year-old female that presents to the emergency department for chief complaint of generalized fatigue. Patient reports she has had increased fatigue over the last month. She also states that she has had 2-3 episodes of loose stools daily for the last month. Today she was getting an MRI performed as an outpatient and felt uncomfortable in the machine. She had them remove her from the machine and then felt too weak to walk to her car. Patient denies any syncopal episodes or palpitations. She does state 2 days ago she started to get a dull ache on the left side of her chest which has been constant since onset 2 days ago. She denies any period of time without chest pain in the last 2 days. She denies any exacerbating or relieving factors to the pain including exertion and respirations. She has had a stress test but it was about 10 years ago and she states it was normal. She denies any history of heart disease. Patient also complains of intermittent dull achy headaches and has not had one for the last week. She reports urinary frequency but denies dysuria fevers and chills. Patient has not tried to contact her PCP regarding her symptoms. She denies any new symptoms today compared to the last month. Patient also complains of 2 episodes of emesis yesterday with associated nausea but has not felt nausea or had vomiting today. She denied associated abdominal pain. Past Medical History: Diabetes, hypertension, hyperlipidemia Past Surgical History: Cholecystectomy, back surgery, right knee surgery, right shoulder surgery Social History: Denies drugs alcohol and tobacco Family History: Reviewed and noncontributory for presenting illness Allergies: Reviewed, see documented allergy list. REVIEW OF SYSTEMS: CONSTITUTIONAL : No fever No chills No diaphoresis No recent illness Generalized weakness EENT: No vision changes No congestion No sore throat CARDIOVASCULAR: chest pain No palpitations RESPIRATORY: No shortness of breath No cough No difficulty breathing GASTROINTESTINAL: No abdominal pain nausea vomiting diarrhea GENITOURINARY: Urinary frequency No dysuria No hematuria No difficulty urinating MUSCULOSKELETAL: No back pain No leg pain No arm pain SKIN: No rashes No lesions LYMPHATIC: No swollen, enlarged glands. NEUROLOGICAL: No lightheadedness No headache No weakness No paresthesias PSYCHIATRIC: No anxiety No depression PHYSICAL EXAMINATION: Vital signs reviewed, nursing noted reviewed. GENERAL: Well-appearing, obese and in no acute distress. HEAD: Atraumatic, normocephalic. EYES: Eyes appear normal, extraocular movements intact, sclera anicteric, conjunctiva are normal. ENT: nares patent, oropharynx clear without exudates. Moist mucous membranes. NECK: Normal range of motion, supple without lymphadenopathy LUNGS: Breath sounds clear to auscultation bilaterally and equal. No wheezes rales or rhonchi. HEART: Regular rate and rhythm without murmurs ABDOMEN: Soft, nontender, normoactive bowel sounds. No rebound, guarding, or rigidity. No masses appreciated. EXTREMITIES: Nontender, good range of motion, no pitting or edema. NEUROLOGICAL: No focal neurological deficits. Moves all extremities spontaneously Motor and sensory grossly intact on exam. PSYCH: Normal mood, normal affect. SKIN: Warm, Dry, normal turgor, no rashes or lesions noted on exposed skin - Related Data Allergies/Adverse Reactions: bupropion HCl [From Wellbutrin] Allergy (Severe, Verified 09/08/18 11:25) prochlorperazine edisylate [From Compazine] Allergy (Severe, Verified 09/08/18 11:25) prochlorperazine maleate [From Compazine] Allergy (Severe, Verified 09/08/18 11:25) buprenorphine [Buprenorphine] Allergy (Verified 09/08/18 11:25) Phenothiazines Allergy (Verified 09/08/18 11:25) Past Medical History - Social History Smoking Status: Never Smoker Family History: Arthritis, CAD, CVA, DM, Hyperlipidemia, Hypertension, Malignancy - Past Medical History Cardiac Medical History: Reports: Hx Coronary Artery Disease, Hx Hypercholesterolemia, Hx Hypertension Denies: Hx Heart Attack Endocrine Medical History: Reports: Hx Diabetes Mellitus Type 2 Renal/ Medical History: Denies: Hx Peritoneal Dialysis GI Medical History: Reports: Hx Gastroesophageal Reflux Disease, Hx Irritable Bowel Musculoskeletal Medical History: Reports Hx Arthritis, Reports Hx Musculoskeletal Deformity, Reports Hx Musculoskeletal Trauma Psychiatric Medical History: Reports: Hx Anxiety, Hx Depression Past Surgical History: Reports: Hx Cholecystectomy, Hx Genitourinary Surgery - Bladder tack, Hx Neurologic Surgery - Back surgery, Hx Orthopedic Surgery - shoulder,knee,wrist, Hx Tonsillectomy, Hx Tubal Ligation. Denies: Hx Hysterectomy - Immunizations Hx Diphtheria, Pertussis, Tetanus Vaccination: Yes Physical Exam - Vital signs Vitals: Temp Pulse Resp BP Pulse Ox 98.3 F 80 16 101/54 L 97 09/08/18 11:41 09/08/18 11:41 09/08/18 11:41 09/08/18 11:41 09/08/18 11:41 Course - Re-evaluation Re-evalutation: 09/08/18 12:06 Vitals reviewed. Nursing notes reviewed. Patient's well-appearing and in no acute distress. She was started on IV fluids for her complaint of diarrhea and weakness for 1 month. Patient has had chest pain which she describes as constant and achy for 2 days. She does have nonspecific T wave flattening with no ST elevation. Patient was given aspirin for her chest pain. 09/08/18 13:06 Patient's lab work is unremarkable. She has no electrolyte derangement or renal insufficiency to suggest severe dehydration. There is no leukocytosis or acute anemia. Patient has a negative chest x-ray. Her troponin is normal. Her pain is been constant for 2 days and her troponin being negative I do not suspect ACS. Patient will be discharged home in stable condition and encouraged to follow with her PCP if symptoms are persisting. Laboratory 09/08/18 09/08/18 09/08/18 11:56 11:56 11:56 WBC 7.8 RBC 4.59 Hgb 13.6 Hct 39.5 MCV 86 MCH 29.7 MCHC 34.5 RDW 13.6 Plt Count 278 Seg Neutrophils % 53.1 Lymphocytes % 31.4 Monocytes % 9.9 Eosinophils % 4.5 Basophils % 1.1 Absolute Neutrophils 4.1 Absolute Lymphocytes 2.5 Absolute Monocytes 0.8 Absolute Eosinophils 0.4 Absolute Basophils 0.1 Sodium 139.6 Potassium 4.2 Chloride 101 Carbon Dioxide 26 Anion Gap 13 BUN 19 Creatinine 1.06 Est GFR ( Amer) > 60 Est GFR (Non-Af Amer) 53 L Glucose 165 H Calcium 10.2 Total Bilirubin 0.8 Direct Bilirubin 0.5 H Neonat Total Bilirubin Not Reportable Neonat Direct Bilirubin Not Reportable Neonat Indirect Bili Not Reportable AST 36 ALT 33 Alkaline Phosphatase 124 Troponin I < 0.012 Total Protein 7.8 Albumin 4.4 Urine Color Urine Appearance Urine pH Ur Specific [place] Urine Protein Urine Glucose (UA) Urine Ketones Urine Blood Urine Nitrite Urine Bilirubin Urine Urobilinogen Ur Leukocyte Esterase Urine WBC (Auto) Urine RBC (Auto) U Hyaline Cast (Auto) Squamous Epi Cells Auto Urine Mucus (Auto) Urine Ascorbic Acid 09/08/18 12:00 WBC RBC Hgb Hct MCV MCH MCHC RDW Plt Count Seg Neutrophils % Lymphocytes % Monocytes % Eosinophils % Basophils % Absolute Neutrophils Absolute Lymphocytes Absolute Monocytes Absolute Eosinophils Absolute Basophils Sodium Potassium Chloride Carbon Dioxide Anion Gap BUN Creatinine Est GFR ( Amer) Est GFR (Non-Af Amer) Glucose Calcium Total Bilirubin Direct Bilirubin Neonat Total Bilirubin Neonat Direct Bilirubin Neonat Indirect Bili AST ALT Alkaline Phosphatase Troponin I Total Protein Albumin Urine Color RAJNI Urine Appearance SLIGHTLY-CLOUDY Urine pH 5.0 Ur Specific [place] 1.024 Urine Protein 30 H Urine Glucose (UA) NEGATIVE Urine Ketones TRACE H Urine Blood NEGATIVE Urine Nitrite NEGATIVE Urine Bilirubin NEGATIVE Urine Urobilinogen 2.0 H Ur Leukocyte Esterase TRACE H Urine WBC (Auto) 2 Urine RBC (Auto) 1 U Hyaline Cast (Auto) 15 Squamous Epi Cells Auto 1 Urine Mucus (Auto) FEW Urine Ascorbic Acid NEGATIVE Chest X-Ray 09/08/18 11:53 IMPRESSION: 1. No significant interval changes since the prior examination dated 07/23/2016. No acute findings. - Vital Signs Vital signs: Temp Pulse Resp BP Pulse Ox 98.3 F 80 20 112/72 99 09/08/18 11:41 09/08/18 11:41 09/08/18 12:46 09/08/18 12:46 09/08/18 12:46 - Laboratory Result Diagrams: 09/08/18 11:56 09/08/18 11:56 Laboratory results interpreted by me: 09/08/18 09/08/18 11:56 12:00 Est GFR (Non-Af Amer) 53 L Glucose 165 H Direct Bilirubin 0.5 H Urine Protein 30 H Urine Ketones TRACE H Urine Urobilinogen 2.0 H Ur Leukocyte Esterase TRACE H - EKG Interpretation by Me Additional EKG results interpreted by me: 09/08/18 12:07 Interpreted by myself 1156: Normal sinus rhythm, rate 74, PVC, no STEMI, nonspecific T wave inversion V3 with flattening diffusely Discharge - Discharge Clinical Impression: Chronic diarrhea Fatigue Qualifiers: Fatigue type: unspecified Qualified Code(s): R53.83 - Other fatigue Chest pain Qualifiers: Chest pain type: unspecified Qualified Code(s): R07.9 - Chest pain, unspecified Condition: Stable Disposition: HOME, SELF-CARE Instructions: Diarrhea, Nonspecific ([facility]), Chest Pain of Unclear Cause ([facility]), Fatigue ([facility]) Additional Instructions: Please return to the emergency department if you have any worsening, or concern of your symptoms. Please return to the emergency department if you develop chest pain, difficulty breathing, severe abdominal pain, or ongoing vomiting. Please follow-up with your primary care physician in 2-3 days and any other recommended physicians. If prescribed, take all medications as directed. If you have any questions or concerns do not hesitate to return the emergency department for evaluation. Stay well-hydrated Referrals: BUZZ SPAIN MD [ASSOCIATE] - Follow up in 3-5 days
[2018-09-08 12:20] LABS: ABSOLUTE BASOPHILS # (AUTO) 0.1 10^3/uL (0.0-0.2); ABSOLUTE EOSINOPHILS # (AUTO) 0.4 10^3/uL (0.0-0.6); ABSOLUTE LYMPHOCYTES (AUTO) 2.5 10^3/uL (0.5-4.7); ABSOLUTE MONOCYTES (AUTO) 0.8 10^3/uL (0.1-1.4); ABSOLUTE NEUT (AUTO) 4.1 10^3/uL (1.7-8.2); BASOPHILS % (AUTO) 1.1 % (0-2); EOSINOPHILS % (AUTO) 4.5 % (0-6); HEMATOCRIT 39.5 % (36.0-47.0); HEMOGLOBIN 13.6 g/dL (12.0-15.5); LYMPHOCYTES % (AUTO) 31.4 % (13-45); MEAN CORPUSCULAR HEMOGLOBIN 29.7 pg (27.0-33.4); MEAN CORPUSCULAR HGB CONC 34.5 g/dL (32.0-36.0); MEAN CORPUSCULAR VOLUME 86 fl (80-97); MONOCYTES % (AUTO) 9.9 % (3-13); PLATELET COUNT 278 10^3/uL (150-450); RED BLOOD COUNT 4.59 10^6/uL (3.72-5.28); RED CELL DISTRIBUTION WIDTH 13.6 % (11.5-14.0); SEGMENTED NEUTROPHILS % (AUTO) 53.1 % (42-78); TOTAL CELLS COUNTED % (AUTO) 100 %; WHITE BLOOD COUNT 7.8 10^3/uL (4.0-10.5)
[2018-09-08 12:30] LABS: ALANINE AMINOTRANSFERASE 33 U/L (9-52); ALBUMIN 4.4 g/dL (3.5-5.0); ALKALINE PHOSPHATASE 124 U/L (38-126); ANION GAP 13 (5-19); ASPARTATE AMINO TRANSFERASE 36 U/L (14-36); BILIRUBIN,DIRECT 0.5 mg/dL (0.0-0.4); BILIRUBIN,TOTAL 0.8 mg/dL (0.2-1.3); BLOOD UREA NITROGEN 19 mg/dL (7-20); CALCIUM 10.2 mg/dL (8.4-10.2); CARBON DIOXIDE 26 mmol/L (22-30); CHLORIDE 101 mmol/L (98-107); GLUCOSE 165 mg/dL (75-110); POTASSIUM 4.2 mmol/L (3.6-5.0); SODIUM 139.6 mmol/L (137-145); TOTAL PROTEIN 7.8 g/dL (6.3-8.2)
[2018-09-08 12:31] LABS: APPEARANCE,URINE SLIGHTLY-CLOUDY; BILIRUBIN,URINE NEGATIVE (NEGATIVE); COLOR,URINE AMBER; GLUCOSE, URINE NEGATIVE (NEGATIVE); KETONES,URINE TRACE mg/dL (NEGATIVE); LEUKOCYTE ESTERASE,URINE TRACE (NEGATIVE); NITRITE,URINE NEGATIVE (NEGATIVE); PROTEIN,URINE 30 mg/dL (NEGATIVE); URINE SPECIFIC GRAVITY 1.024
--- NOTE | 2018-09-08 12:54 | RADIOLOGY REPORT (SQ) ---
EXAM DESCRIPTION: CHEST SINGLE VIEW COMPLETED DATE/TIME: 09/08/2018 12:45 pm REASON FOR STUDY: weakness COMPARISON: 07/03/2016 EXAM PARAMETERS: NUMBER OF VIEWS: One view. TECHNIQUE: Single frontal radiographic view of the chest acquired. RADIATION DOSE: NA LIMITATIONS: None. FINDINGS: LUNGS AND PLEURA: No opacities, masses or pneumothorax. No pleural effusion. MEDIASTINUM AND HILAR STRUCTURES: No masses. Contour normal. HEART AND VASCULAR STRUCTURES: Heart normal in size. Normal vasculature. BONES: The osseous structures are stable in appearance. HARDWARE: Partially visualize right shoulder arthroplasty, stable finding. OTHER: No other significant finding. IMPRESSION: 1. No significant interval changes since the prior examination dated 07/23/2016. No acu te findings. TECHNICAL DOCUMENTATION: JOB ID: [id number] [employer]- All Rights Reserved Reading location - IP/workstation name: [email or web address]
[2018-09-08 13:09] VITALS: BP 112/76
--- NOTE | 2018-09-08 22:35 | EKG REPORT ---
SEVERITY:- BORDERLINE ECG - SINUS RHYTHM VENTRICULAR PREMATURE COMPLEX BORDERLINE PROLONGED QT INTERVAL : Confirmed by: Sherrie Mckinley MD 08-Sep-2018 22:35:12
== END 2018-09-08 13:09 | disposition home or self-care (01) ==
LOC: ER 11:23
DX: K52.9 Noninfective gastroenteritis and colitis, unspecified (principal); R53.83 Other fatigue; R07.9 Chest pain, unspecified; Z90.49 Acquired absence of other specified parts of digestive tract; Z98.51 Tubal ligation status
CPT/HCPCS: 99284; 96360; 36415; 87086; 85025; 80053; 81001; 84484; 71045; 93005; 93010; J7030

== ENCOUNTER → 2018-09-14 | Outpatient (CLI) | payer MEDICAID ==
--- NOTE | 2018-09-14 14:05 | RADIOLOGY REPORT (SQ) ---
EXAM DESCRIPTION: MRI CERVICAL SPINE WITHOUT COMPLETED DATE/TIME: 09/14/2018 12:33 pm REASON FOR STUDY: CERVICAL DISC DISORDER W RADICULOPATHY, UNSP CERVICAL REGION M50.10 CERVICAL DISC DISORDER W RADICULOPATHY, UNSP CERVICAL COMPARISON: None. TECHNIQUE: Sagittal and Axial imaging includes T1, T2, STIR and gradient echo sequences. LIMITATIONS: Motion. FINDINGS: ALIGNMENT: Straightening of the lordotic curve. VERTEBRAE: Intact. BONE MARROW: Normal. No marrow replacement or reactive changes. DISCS: Desiccation multiple levels. HARDWARE: None in the spine. CORD AND BASE OF BRAIN: Normal in size and signal intensity. SOFT TISSUES: No soft tissue masses. C1-C2: No significant spinal stenosis. C2-C3: No significant spinal stenosis or exit foraminal stenosis. C3-C4: Mild spinal stenosis due to disc osteophyte complex. Moderate neural foraminal narrowing bila terally. C4-C5: Mild spinal stenosis. Severe neural foraminal narrowing bilaterally. C5-C6: Mild spinal stenosis. Moderate neural foraminal narrowing bilaterally. C6-C7: Mild spinal stenosis. Severe right neural foraminal narrowing. C7-T1: No significant stenosis. UPPER THORACIC: Incompletely imaged. No significant spinal stenosis or exit foraminal stenosis. OTHER: No other significant finding. IMPRESSION: Mild spinal stenosis at multiple levels. Varying degrees of neural foraminal stenosis. TECHNICAL DOCUMENTATION: JOB ID: [id number] [employer]- All Rights Reserved Reading location - IP/workstation name: [email or web address]
== END ==
LOC: RAD 09-08 10:05
PROVIDERS: ATTEND Orthopaedic Surgery Sports Medicine
DX: M50.10 Cervical disc disorder with radiculopathy, unspecified cervical region (principal); M48.02 Spinal stenosis, cervical region
CPT/HCPCS: 72141

== ENCOUNTER → 2018-11-08 | Outpatient (CLI) | payer MEDICAID ==
--- NOTE | 2018-11-08 14:12 | WOMENS IMAGING REPORT ---
EXAM DESCRIPTION: BILAT SCREENING MAMMO W/CAD COMPLETED DATE/TIME: 11/08/2018 9:32 am REASON FOR STUDY: Z12.31 ENCOUNTER FOR SCREENING MAMMOGRAM FOR MALIGNANT NEOPLASM OF BREAST Z12.31 ENCNTR SCREEN MAMMOGRAM FOR MALIGNANT NEOPLASM OF [place] COMPARISON: Multiple since 2008 EXAM PARAMETERS: Standard craniocaudal and mediolateral oblique views of each breast recorded using digital acquisition. Read with the assistance of CAD. .[facility] - [employer] Version 9.2 LIMITATIONS: None. FINDINGS: No suspicious masses, suspicious calcifications or architectural distortion. No areas of c oncern. IMPRESSION: Negative MAMMOGRAM. BIRADS 1 BREAST DENSITY: b. There are scattered areas of fibroglandular density. BIRAD: ASSESSMENT: 1 NEGATIVE RECOMMENDATION: ROUTINE SCREENING COMMENT: The patient has been notified of the results by letter per MQSA requirements. Additional no tification policies are in place for contacting patient with suspicious or incomplete findings. Quality ID #225: The [employer] recommends an annual screening mammogram for women aged 40 years or over. This facility utilizes a reminder system to ensure that all patients receive reminder letters, and/or direct phone calls for appointments. This includes reminders for routine scr eening mammograms, diagnostic mammograms, or other Breast Imaging Interventions when appropriate. Th is patient will be placed in the appropriate reminder system. TECHNICAL DOCUMENTATION: FINDING NUMBER: (1) ASSESSMENT: (1) JOB ID: [id number] [employer]- All Rights Reserved Reading location - IP/workstation name: [email or web address]
== END ==
LOC: WI 08:55
PROVIDERS: ATTEND Family Medicine
DX: Z12.31 Encounter for screening mammogram for malignant neoplasm of breast (principal)
CPT/HCPCS: 77067

== ENCOUNTER → 2019-05-29 | Outpatient (CLI) | payer MEDICAID ==
--- NOTE | 2019-05-29 13:07 | RADIOLOGY REPORT (SQ) ---
EXAM DESCRIPTION: HIP LEFT AP/LATERAL COMPLETED DATE/TIME: 05/29/2019 10:08 am REASON FOR STUDY: L HIP PAIN COMPARISON: Lumbar spine films same date CT abdomen pelvis 12/25/2017 NUMBER OF VIEWS: Two views. TECHNIQUE: AP pelvis and additional frog-leg view of the left hip. LIMITATIONS: None. FINDINGS: MINERALIZATION: Normal. LEFT HIP: No fracture or dislocation. No worrisome bone lesions. RIGHT HIP: No fracture or dislocation. No worrisome bone lesions. PUBIS AND ISCHIUM: No fracture. PELVIS: No fracture. Sclerosis right SI joint SACRUM: No fracture or dislocation. No worrisome bone lesions. LOWER LUMBAR SPINE: Laminectomy and hardware at L4 SOFT TISSUES: No findings. OTHER: No other significant finding. IMPRESSION: NEGATIVE STUDY OF THE LEFT HIP AND PELVIS. NO RADIOGRAPHIC EVIDENCE OF ACUTE INJURY. TECHNICAL DOCUMENTATION: JOB ID: [id number] [employer]- All Rights Reserved Reading location - IP/workstation name: [email or web address]
--- NOTE | 2019-05-29 13:12 | RADIOLOGY REPORT (SQ) ---
EXAM DESCRIPTION: L SPINE W/FLEX/EXT COMPLETED DATE/TIME: 05/29/2019 10:08 am REASON FOR STUDY: LUMBAR RADICULOPATHY COMPARISON: CT abdomen pelvis 12/25/2017 Lumbar spine films 12/03/2016 NUMBER OF VIEWS: Seven views. TECHNIQUE: AP, lateral, obliques, flexion, extension, and sacral radiographic images acquired. LIMITATIONS: None. FINDINGS: MINERALIZATION: Osteopenic SEGMENTATION: Normal. No transitional anatomy. ALIGNMENT: There is increasing convex leftward lumbar curvature compared to studies from 2017. Curre nt study demonstrates about 30 of convex leftward curvature (was about 15 of convex leftward curvat ure in 2017). FLEXION/EXTENSION: No instability. VERTEBRAE: Maintained height. No fracture or worrisome bone lesion. DISCS: High-grade disc space loss of height at L3-4 and L4-5. Disc space prosthesis at L4-5. POSTERIOR ELEMENTS: Old right L4 laminectomy. HARDWARE: Bilateral transpedicular screws and dorsal fixation plates at L3-4. On the left, there is lucency around the L3 screw worrisome for loosening of the hardware. This is best shown on the AP vi ew PARASPINAL SOFT TISSUES: Clips right upper quadrant post cholecystectomy PELVIS: Sclerosis bilateral SI joints right greater than left OTHER: No other significant finding. IMPRESSION: Progressive convex leftward curvature since 2017 Lucency around the left L3 transpedicular screw worrisome for loosening of hardware No instability on flexion/extension TECHNICAL DOCUMENTATION: JOB ID: [id number] [employer]- All Rights Reserved Reading location - IP/workstation name: [facility]
== END ==
LOC: RAD 09:33
PROVIDERS: ATTEND Specialist
DX: M25.552 Pain in left hip (principal)
CPT/HCPCS: 72114

== ENCOUNTER → 2019-11-14 | Outpatient (CLI) | payer MEDICAID ==
--- NOTE | 2019-11-15 08:39 | WOMENS IMAGING REPORT ---
EXAM DESCRIPTION: 3D SCREENING MAMMO BILAT IMAGES COMPLETED DATE/TIME: 11/14/2019 11:59 am REASON FOR STUDY: Z12.31 ENCOUNTER FOR SCREENING MAMMOGRAM FOR MALIGNANT NEOPLASM OF BREAST Z12.31 ENCNTR SCREEN MAMMOGRAM FOR MALIGNANT NEOPLASM OF [place] COMPARISON: 11/08/2018 and 06/30/2017. EXAM PARAMETERS: Views: Standard craniocaudal and mediolateral oblique views of each breast recorded using digital acquisition and breast tomosynthesis. Read with the assistance of CAD. .[facility] - [employer] Version 9.2 LIMITATIONS: None. FINDINGS: No suspicious masses, suspicious calcifications or architectural distortion. No areas of c oncern. IMPRESSION: NEGATIVE MAMMOGRAM. BIRADS 1. BREAST DENSITY: b. There are scattered areas of fibroglandular density. BIRAD: ASSESSMENT: 1 NEGATIVE RECOMMENDATION: ROUTINE SCREENING COMMENT: The patient has been notified of the results by letter per MQSA requirements. Additional no tification policies are in place for contacting patient with suspicious or incomplete findings. Quality ID #225: The [employer] recommends an annual screening mammogram for women aged 40 years or over. This facility utilizes a reminder system to ensure that all patients receive reminder letters, and/or direct phone calls for appointments. This includes reminders for routine scr eening mammograms, diagnostic mammograms, or other Breast Imaging Interventions when appropriate. Th is patient will be placed in the appropriate reminder system. TECHNICAL DOCUMENTATION: FINDING NUMBER: (1) ASSESSMENT: (1) JOB ID: [id number] [employer]- All Rights Reserved Reading location - IP/workstation name: [email or web address]
== END ==
LOC: WI 11:42
PROVIDERS: ATTEND Nurse Practitioner Family
DX: Z12.31 Encounter for screening mammogram for malignant neoplasm of breast (principal)
CPT/HCPCS: 77063; 77067